=== PATIENT | female | born 1935 | race African-American/Black ===

== ENCOUNTER → 2016-11-18 | Outpatient (CLI) | payer MEDICARE, MEDICAID ==
[~2016-11-18] MED LIST: CLOP75TA2 PO; MECL12.584 PO; OMEP40CA34 PO; SIMV20TA6 PO
== END | disposition home or self-care (01) ==
LOC: MAMMO 09:36
PROVIDERS: ATTEND Radiology Radiation Oncology
DX: Z12.31 Encounter for screening mammogram for malignant neoplasm of breast (principal); C50.412 Malignant neoplasm of upper-outer quadrant of left female breast
CPT/HCPCS: G0202

== ENCOUNTER 2017-01-23 14:47 | Emergency (ER) | payer MEDICARE, MEDICAID ==
[~2017-01-23] VITALS: Ht 167.6 cm; Wt 50.0 kg
[~2017-01-23 14:47] MED LIST changes: +AMLO10TA4 PO; +MECL-109 PO; -MECL12.584 PO
[2017-01-23] MEDS ORDERED: MORPHINE SULFATE 4 MG/ML CPJ (NOT FOR IM USE) IV STA (16:47)
[2017-01-23] MEDS ORDERED: SODIUM CHLORIDE 0.9% 1,000 ML IV ONE (16:47)
[2017-01-23] MEDS ORDERED: ONDANSETRON HCL 4MG/2ML VIAL IV STA (16:47)
[2017-01-23 17:22] LABS: EOSINOPHILS % 1.8 % (0.0-5.0); HEMATOCRIT. 30.9 % (36.0-48.0); HEMOGLOBIN. 9.8 g/dL (12.0-16.0); MEAN CORPUSCULAR HEMOGLOBIN 24.6 pg (28.0-32.0); MEAN CORPUSCULAR VOLUME 77.2 fL (81.0-99.0); MEAN PLATELET VOLUME 7.5 fl (7.4-10.4); MONOCYTES % 8.3 % (2.0-8.0); NEUTROPHILS % 59.9 % (40.0-76.0); PLATELET 329 x1000/uL (130-400); RED CELL DISTRIBUTION WIDTH 16.5 % (11.6-14.6)
[2017-01-23 17:23] LABS: CHLORIDE 102 mEq/L (98-107)
[2017-01-23 17:27] LABS: PROTHROMBIN TIME 10.7 sec
[2017-01-23 17:28] LABS: CARBON DIOXIDE 29 mEq/L (21-32)
[2017-01-23 17:34] LABS: TROPONIN I < 0.02 ng/mL (0.00-0.04)
[2017-01-23] MEDS ORDERED: SORBITOL 70% SOLN 30ML PO ONE (20:15)
[2017-01-23] MEDS ORDERED: NA PHOS,M-B/NA PHOS,DI-BA ENEMA 118ML PR ONE (20:15)
[2017-01-23 22:36] VITALS: BP 134/70
== END 2017-01-23 22:38 | disposition home or self-care (01) ==
LOC: ER 15:06 → CANBEDREQ 22:43
DX: K59.00 Constipation, unspecified (principal); I25.2 Old myocardial infarction; K21.9 Gastro-esophageal reflux disease without esophagitis; I10 Essential (primary) hypertension; K80.20 Calculus of gallbladder without cholecystitis without obstruction; I31.3 Pericardial effusion (noninflammatory); N32.89 Other specified disorders of bladder; I25.10 Atherosclerotic heart disease of native coronary artery without angina pectoris; Z85.3 Personal history of malignant neoplasm of breast; Z87.11 Personal history of peptic ulcer disease; Z98.84 Bariatric surgery status
CPT/HCPCS: 36415; 71010; 74176; 80053; 83605; 83690; 84484; 85025; 85610; 93005; 96361; 96374; 96375; 99285; J2270; J2405; J7030

== ENCOUNTER 2017-02-16 10:40 | Inpatient (IN) | payer MEDICARE, MEDICAID ==
[~2017-02-16] VITALS: Ht 162.6 cm; Wt 46.3 kg
[~2017-02-16 10:40] MED LIST changes: +CLOP75TA16 PO; -CLOP75TA2 PO
[2017-02-16 11:24] LABS: BASOPHILS % 0.9 % (0.0-2.0); EOSINOPHILS % 1.2 % (0.0-5.0); HEMATOCRIT. 31.8 % (36.0-48.0); HEMOGLOBIN. 10.1 g/dL (12.0-16.0); LYMPHOCYTES % 30.7 % (20.0-50.0); MEAN CORPUSCULAR HEMOGLOBIN 24.9 pg (28.0-32.0); MEAN CORPUSCULAR VOLUME 78.7 fL (81.0-99.0); MEAN PLATELET VOLUME 7.6 fl (7.4-10.4); MONOCYTES % 7.4 % (2.0-8.0); NEUTROPHILS % 59.8 % (40.0-76.0); PLATELET 337 x1000/uL (130-400); RED BLOOD CELL COUNT 4.03 mill/uL (4.2-5.4); RED CELL DISTRIBUTION WIDTH 18.6 % (11.6-14.6)
[2017-02-16 11:33] LABS: PARTIAL THROMBOPLASTIN TIME 22.9 sec (23.4-31.0); PROTHROMBIN TIME 10.7 sec (9.4-11.6)
[2017-02-16 11:39] LABS: CARBON DIOXIDE 29 mEq/L (21-32); CHLORIDE 107 mEq/L (98-107)
[2017-02-16 11:41] LABS: TROPONIN I < 0.02 ng/mL (0.00-0.04)
[2017-02-16 11:44] LABS: CLARITY URINE CLOUDY (CLEAR); COLOR URINE DARK YELLOW (YELLOW); GLUCOSE URINE NEGATIVE (NEGATIVE); KETONES URINE TRACE (NEGATIVE); LEUKOCYTE ESTERASE URINE NEGATIVE (NEGATIVE); NITRITE URINE POSITIVE (NEGATIVE); OCCULT BLOOD URINE NEGATIVE (NEGATIVE); PH URINE 5.5 (4.5-8.0); PROTEIN URINE TRACE (NEGATIVE); SPECIFIC GRAVITY URINE 1.038 (1.005-1.030)
[2017-02-16] MEDS ORDERED: POTASSIUM CHLORIDE 20MEQ TABLET SR PO ONE (12:00)
[2017-02-16] MEDS ORDERED: CEFTRIAXONE 1 G PREMIX 50 ML IV ONE (12:00)
[2017-02-16] MEDS ORDERED: SODIUM CHLORIDE 0.9% 500 ML IV ONE (12:10)
[2017-02-16 14:00] VITALS: BP 130/82
[2017-02-16] MEDS ORDERED: DEXT 5%/0.45% NACL 1000ML 1,000 ML IV SCH (16:38)
[2017-02-16] MEDS ORDERED: ACETAMINOPHEN 325MG TABLET PO PRN (16:45)
[2017-02-16] MEDS ORDERED: HYDROCODONE/ACETAMINOPHEN 5/325MG TABLET PO PRN (16:45)
[2017-02-16] MEDS ORDERED: IPRATROPIUM/ALBUTEROL 0.5-3(2.5)MG/3ML NEB INH PRN (16:45)
[2017-02-16] MEDS ORDERED: CLONIDINE 0.1MG TABLET PO PRN (16:45)
[2017-02-16] MEDS ORDERED: ONDANSETRON HCL 4MG/2ML VIAL IV PRN (16:45)
[2017-02-16] MEDS: ENOXAPARIN 40MG/0.4ML SYR SUBCUT SCH (18:53)
[2017-02-16 20:00] VITALS: BP 138/70
[2017-02-16 23:10] LABS: CREATINE KINASE 51 IU/L (26-192); CREATINE KINASE MB FRACTION < 0.5 ng/mL (0.5-3.6); TROPONIN I < 0.02 ng/mL (0.00-0.04)
[2017-02-17] VITALS: BP 125/58
[2017-02-17 04:00] VITALS: BP 130/58
[2017-02-17 06:26] LABS: BASOPHILS % 0.8 % (0.0-2.0); EOSINOPHILS % 1.4 % (0.0-5.0); HEMATOCRIT. 28.9 % (36.0-48.0); HEMOGLOBIN. 9.3 g/dL (12.0-16.0); MEAN CORPUSCULAR HEMOGLOBIN 25.3 pg (28.0-32.0); MEAN CORPUSCULAR VOLUME 78.5 fL (81.0-99.0); MEAN PLATELET VOLUME 7.6 fl (7.4-10.4); MONOCYTES % 8.7 % (2.0-8.0); NEUTROPHILS % 66.1 % (40.0-76.0); PLATELET 301 x1000/uL (130-400); RED BLOOD CELL COUNT 3.68 mill/uL (4.2-5.4); RED CELL DISTRIBUTION WIDTH 18.1 % (11.6-14.6)
[2017-02-17 07:01] LABS: CARBON DIOXIDE 29 mEq/L (21-32); CHLORIDE 105 mEq/L (98-107)
[2017-02-17 07:09] LABS: CREATINE KINASE 50 IU/L (26-192); CREATINE KINASE MB FRACTION < 0.5 ng/mL (0.5-3.6); HDL CHOLESTEROL 65 mg/dL (40-59); LDL CHOLESTEROL 88 mg/dL (5-100); T4 FREE 0.84 ng/dL (0.76-1.46); TROPONIN I < 0.02 ng/mL (0.00-0.04)
[2017-02-17 08:00] VITALS: BP 118/64
[2017-02-17] MEDS ORDERED: POTASSIUM CHLORIDE 20MEQ TABLET SR PO SCH (08:45)
[2017-02-17 12:00] VITALS: BP 116/60
[2017-02-17] MEDS ORDERED: POTASSIUM CHLORIDE 20MEQ TABLET SR PO NR (13:45)
[2017-02-17] MEDS ORDERED: LEVOFLOXACIN 500MG PREMIX 100 ML IV NR (15:30)
[2017-02-17 16:00] VITALS: BP 118/63
[2017-02-17 17:49] VITALS: BP 20/118
[2017-02-17] MEDS: ENOXAPARIN 40MG/0.4ML SYR SUBCUT SCH (18:15)
[2017-02-18] MEDS ORDERED: LEVOFLOXACIN 250MG PREMIX 50 ML IV SCH (16:00)
[2017-04-15] MEDS ORDERED: COR3 PO (19:49)
[2017-04-15] MEDS ORDERED: LOSA50TA3 PO (19:51)
== END 2017-02-17 19:25 | DRG 641 ==
LOC: ER 10:40 → 6EST 11:56 → EDBEDREQSVC 12:01 → EDBEDREQ 12:01 → ENRESERV 12:33
PROVIDERS: ADMIT Internal Medicine; ATTEND Internal Medicine
DX: E86.0 Dehydration (principal); N39.0 Urinary tract infection, site not specified; D64.9 Anemia, unspecified; I10 Essential (primary) hypertension; E87.6 Hypokalemia; I25.10 Atherosclerotic heart disease of native coronary artery without angina pectoris; Z90.3 Acquired absence of stomach [part of]; Z79.899 Other long term (current) drug therapy; Z85.028 Personal history of other malignant neoplasm of stomach
CPT/HCPCS: 36415; 51702; 70450; 71010; 74176; 80053; 80061; 81001; 82550; 82553; 83605; 83690; 83735; 83880; 84439; 84443; 84484; 85025; 85610; 85730; 87040; 87077; 87086; 87186; 93005; 96360; 97163; 99285; J0696; J1650; J1956; J2405; J3490; J7040; A4315

== ENCOUNTER 2017-04-12 07:06 | Emergency (ER) | payer MEDICARE, MEDICAID ==
[~2017-04-12] VITALS: Ht 165.1 cm; Wt 52.0 kg
[2017-04-12 08:50] VITALS: BP 128/78
[2017-04-15] MEDS ORDERED: COR3 PO (19:49)
[2017-04-15] MEDS ORDERED: LOSA50TA3 PO (19:51)
== END 2017-04-12 09:05 | disposition home or self-care (01) ==
LOC: ER 07:06
DX: H66.91 Otitis media, unspecified, right ear (principal); I10 Essential (primary) hypertension
CPT/HCPCS: 99283

== ENCOUNTER 2017-08-05 12:21 | Emergency (ER) | payer OTHER, MEDICAID ==
[~2017-08-05] VITALS: Ht 165.1 cm; Wt 59.0 kg
[~2017-08-05 12:21] MED LIST changes: +AMIT25TA9 PO; +ASPI-986 PO; +COR3 PO; +DEXILANT PO; +LOSA50TA3 PO
[2017-08-05] MEDS ORDERED: SODIUM CHLORIDE 0.9% 1,000 ML IV ONE (12:43)
[2017-08-05] MEDS ORDERED: ONDANSETRON HCL 4MG/2ML VIAL IV STA (12:43)
[2017-08-05 13:08] LABS: HEMATOCRIT. 28.5 % (36.0-48.0); HEMOGLOBIN. 9.4 g/dL (12.0-16.0); MEAN CORPUSCULAR HEMOGLOBIN 26.5 pg (28.0-32.0); PLATELET 309 x1000/uL (130-400); RED BLOOD CELL COUNT 3.56 mill/uL (4.2-5.4); RED CELL DISTRIBUTION WIDTH 14.8 % (11.6-14.6)
[2017-08-05 13:16] LABS: PROTHROMBIN TIME 10.8 sec (9.4-11.6)
[2017-08-05 13:23] LABS: CHLORIDE 104 mEq/L (98-107)
[2017-08-05 13:29] LABS: PLATELET ESTIMATE NORMAL
[2017-08-05 13:35] LABS: CLARITY URINE CLEAR (CLEAR); COLOR URINE YELLOW (YELLOW); KETONES URINE TRACE (NEGATIVE); LEUKOCYTE ESTERASE URINE NEGATIVE (NEGATIVE); NITRITE URINE NEGATIVE (NEGATIVE); OCCULT BLOOD URINE NEGATIVE (NEGATIVE); PH URINE 6.5 (4.5-8.0); PROTEIN URINE NEGATIVE (NEGATIVE); SPECIFIC GRAVITY URINE 1.014 (1.005-1.030)
[2017-08-05] MEDS ORDERED: POTASSIUM CHLORIDE 20MEQ TABLET SR PO ONE (15:45)
[2017-08-05 17:02] VITALS: BP 147/78
== END 2017-08-05 17:15 | disposition home or self-care (01) ==
LOC: ER 12:24
DX: E87.6 Hypokalemia (principal); E78.00 Pure hypercholesterolemia, unspecified; I25.2 Old myocardial infarction; I10 Essential (primary) hypertension; R10.84 Generalized abdominal pain; Z86.73 Personal history of transient ischemic attack (TIA), and cerebral infarction without residual deficits; Z79.82 Long term (current) use of aspirin
CPT/HCPCS: 36415; 70450; 71045; 74176; 80053; 81003; 85025; 85610; 93005; 96361; 96374; 99285; J2405; J7030

== ENCOUNTER 2017-08-14 10:01 | Inpatient (IN) | payer OTHER, MEDICAID ==
[~2017-08-14] VITALS: Ht 162.6 cm; Wt 47.2 kg
[2017-08-14 11:26] LABS: BASOPHILS % 1.5 % (0.0-2.0); EOSINOPHILS % 1.4 % (0.0-5.0); HEMATOCRIT. 29.4 % (36.0-48.0); HEMOGLOBIN. 9.4 g/dL (12.0-16.0); LYMPHOCYTES % 29.1 % (20.0-50.0); MEAN CORPUSCULAR HEMOGLOBIN 25.6 pg (28.0-32.0); MEAN CORPUSCULAR VOLUME 79.7 fL (81.0-99.0); MEAN PLATELET VOLUME 6.7 fl (7.4-10.4); MONOCYTES % 8.3 % (2.0-8.0); NEUTROPHILS % 59.7 % (40.0-76.0); PLATELET 350 x1000/uL (130-400); RED BLOOD CELL COUNT 3.69 mill/uL (4.2-5.4); RED CELL DISTRIBUTION WIDTH 15.3 % (11.6-14.6)
[2017-08-14 11:33] LABS: PROTHROMBIN TIME 10.8 sec (9.4-11.6)
[2017-08-14 11:39] LABS: CHLORIDE 106 mEq/L (98-107)
[2017-08-14 11:45] LABS: TROPONIN I < 0.02 ng/mL (0.00-0.04)
[2017-08-14] MEDS ORDERED: ASPIRIN 325MG EC TABLET PO ONE (11:45)
[2017-08-14] MEDS ORDERED: MECLIZINE 25MG TABLET PO PRN (14:15)
[2017-08-14] MEDS ORDERED: ACETAMINOPHEN 325MG TABLET PO PRN (14:15)
[2017-08-14] MEDS ORDERED: ONDANSETRON HCL 4MG/2ML VIAL IV PRN (14:15)
[2017-08-14] MEDS ORDERED: IPRATROPIUM/ALBUTEROL 0.5-3(2.5)MG/3ML NEB INH PRN (14:15)
[2017-08-14] MEDS ORDERED: POTASSIUM CHLORIDE 20MEQ TABLET SR PO NR (14:15)
[2017-08-14] MEDS: ENOXAPARIN 40MG/0.4ML SYR SUBCUT SCH (18:19)
[2017-08-14] MEDS: ASPIRIN 325MG TABLET PO SCH (18:20)
[2017-08-14] MEDS: AMLODIPINE 10MG TABLET PO SCH (18:20)
[2017-08-14] MEDS: CLOPIDOGREL 75MG TABLET PO SCH (18:20)
[2017-08-14] MEDS: CARVEDILOL 3.125 MG TABLET PO SCH ×2 (18:21→21:31)
[2017-08-14] MEDS: LOSARTAN POTASSIUM 50 MG TABLET PO SCH ×2 (18:21→21:32)
[2017-08-14 18:48] VITALS: BP 131/79
[2017-08-14 20:02] LABS: CHLORIDE 103 mEq/L (98-107)
[2017-08-14] MEDS: AMITRIPTYLINE 25MG TABLET PO SCH ×2 (21:31→22:00)
[2017-08-14 23:09] LABS: CLARITY URINE CLOUDY (CLEAR); COLOR URINE YELLOW (YELLOW); KETONES URINE NEGATIVE (NEGATIVE); LEUKOCYTE ESTERASE URINE TRACE (NEGATIVE); NITRITE URINE NEGATIVE (NEGATIVE); OCCULT BLOOD URINE NEGATIVE (NEGATIVE); PH URINE 6.5 (4.5-8.0); PROTEIN URINE NEGATIVE (NEGATIVE); SPECIFIC GRAVITY URINE 1.011 (1.005-1.030)
[2017-08-15 01:09] LABS: CREATINE KINASE 54 IU/L (26-192)
[2017-08-15 01:15] LABS: TROPONIN I < 0.02 ng/mL (0.00-0.04)
[2017-08-15] MEDS: HYDROCODONE/ACETAMINOPHEN 5/325MG TABLET PO PRN ×2 (05:44→14:54)
[2017-08-15 07:26] VITALS: BP 110/63
[2017-08-15 08:05] LABS: BASOPHILS % 1.4 % (0.0-2.0); EOSINOPHILS % 1.8 % (0.0-5.0); HEMATOCRIT. 30.6 % (36.0-48.0); HEMOGLOBIN. 9.8 g/dL (12.0-16.0); LYMPHOCYTES % 28.4 % (20.0-50.0); MEAN CORPUSCULAR HEMOGLOBIN 25.7 pg (28.0-32.0); MEAN CORPUSCULAR VOLUME 80.3 fL (81.0-99.0); MEAN PLATELET VOLUME 7.4 fl (7.4-10.4); MONOCYTES % 8.7 % (2.0-8.0); NEUTROPHILS % 59.7 % (40.0-76.0); PLATELET 348 x1000/uL (130-400); RED BLOOD CELL COUNT 3.81 mill/uL (4.2-5.4); RED CELL DISTRIBUTION WIDTH 15.5 % (11.6-14.6)
[2017-08-15 08:27] LABS: CHLORIDE 107 mEq/L (98-107)
[2017-08-15 08:38] LABS: CREATINE KINASE 40 IU/L (26-192); HDL CHOLESTEROL 62 mg/dL (40-59); LDL CHOLESTEROL 93 mg/dL (5-100); T4 FREE 0.82 ng/dL (0.76-1.46); TROPONIN I < 0.02 ng/mL (0.00-0.04)
[2017-08-15] MEDS: AMLODIPINE 10MG TABLET PO SCH (08:41)
[2017-08-15] MEDS: LOSARTAN POTASSIUM 50 MG TABLET PO SCH (08:41)
[2017-08-15] MEDS: CARVEDILOL 3.125 MG TABLET PO SCH (08:41)
[2017-08-15] MEDS: CLOPIDOGREL 75MG TABLET PO SCH (08:44)
[2017-08-15] MEDS: ASPIRIN 325MG TABLET PO SCH (08:44)
[2017-08-15 11:27] VITALS: BP 135/79
[2017-08-15 16:00] VITALS: BP 122/66
[2017-08-15] MEDS: ENOXAPARIN 40MG/0.4ML SYR SUBCUT SCH (17:00)
[2017-08-15 17:11] VITALS: BP 122/66
[2017-08-15] MEDS ORDERED: AMITRIPTYLINE 25MG TABLET PO SCH (21:00)
[2017-08-16] MEDS ORDERED: LOSARTAN POTASSIUM 25 MG TABLET PO SCH (09:00)
[2017-08-16] MEDS ORDERED: AMLODIPINE 2.5MG TABLET PO SCH (09:00)
== END 2017-08-15 18:15 | disposition home or self-care (01) | DRG 206 ==
LOC: ER 10:01 → 6WST 12:02 → EDBEDREQ 12:04 → ENRESERV 14:40
PROVIDERS: ADMIT Internal Medicine; ATTEND Internal Medicine
DX: M94.0 Chondrocostal junction syndrome [Tietze] (principal); I95.9 Hypotension, unspecified; I42.9 Cardiomyopathy, unspecified; I11.0 Hypertensive heart disease with heart failure; I50.22 Chronic systolic (congestive) heart failure; R13.10 Dysphagia, unspecified; I25.10 Atherosclerotic heart disease of native coronary artery without angina pectoris; D64.9 Anemia, unspecified; J44.9 Chronic obstructive pulmonary disease, unspecified; E78.00 Pure hypercholesterolemia, unspecified; E78.5 Hyperlipidemia, unspecified; E87.6 Hypokalemia; G43.909 Migraine, unspecified, not intractable, without status migrainosus; I25.2 Old myocardial infarction; Z79.899 Other long term (current) drug therapy; Z85.028 Personal history of other malignant neoplasm of stomach; Z86.73 Personal history of transient ischemic attack (TIA), and cerebral infarction without residual deficits; Z90.3 Acquired absence of stomach [part of]; Z95.5 Presence of coronary angioplasty implant and graft; Z87.891 Personal history of nicotine dependence; Z79.82 Long term (current) use of aspirin; Z90.49 Acquired absence of other specified parts of digestive tract
CPT/HCPCS: 36415; 71045; 80048; 80053; 80061; 81003; 82550; 83880; 84439; 84443; 84484; 85025; 85610; 93005; 93306; 99285; J1650

== ENCOUNTER 2017-08-24 09:44 | Inpatient (IN) | payer OTHER, MEDICAID ==
[~2017-08-24] VITALS: Ht 162.6 cm; Wt 47.6 kg
[2017-08-24] MEDS ORDERED: ONDANSETRON HCL 4MG/2ML VIAL IV STA (09:55)
[2017-08-24] MEDS ORDERED: SODIUM CHLORIDE 0.9% 500 ML IV ONE (09:55)
[2017-08-24 10:12] LABS: BASOPHILS % 1.4 % (0.0-2.0); EOSINOPHILS % 1.8 % (0.0-5.0); HEMATOCRIT. 26.5 % (36.0-48.0); HEMOGLOBIN. 8.8 g/dL (12.0-16.0); LYMPHOCYTES % 30.5 % (20.0-50.0); MEAN CORPUSCULAR HEMOGLOBIN 26.6 pg (28.0-32.0); MEAN CORPUSCULAR VOLUME 80.2 fL (81.0-99.0); MEAN PLATELET VOLUME 7.2 fl (7.4-10.4); MONOCYTES % 7.9 % (2.0-8.0); NEUTROPHILS % 58.4 % (40.0-76.0); PLATELET 305 x1000/uL (130-400); RED BLOOD CELL COUNT 3.31 mill/uL (4.2-5.4); RED CELL DISTRIBUTION WIDTH 15.7 % (11.6-14.6)
[2017-08-24 10:19] LABS: PARTIAL THROMBOPLASTIN TIME 23.2 sec (23.4-31.0); PROTHROMBIN TIME 10.5 sec (9.4-11.6)
[2017-08-24 10:20] LABS: CHLORIDE 107 mEq/L (98-107)
[2017-08-24 10:27] LABS: CREATINE KINASE 60 IU/L (26-192); CREATINE KINASE MB FRACTION 0.8 ng/mL (0.5-3.6); TROPONIN I < 0.02 ng/mL (0.00-0.04)
[2017-08-24] MEDS ORDERED: SODIUM CHLORIDE 0.9% 250 ML IV ONE (10:54)
[2017-08-24] MEDS ORDERED: POTASSIUM CHLORIDE 20MEQ TABLET SR PO ONE (14:45)
[2017-08-24] MEDS ORDERED: ACETAMINOPHEN 325MG TABLET PO PRN (14:45)
[2017-08-24] MEDS ORDERED: CLONIDINE 0.1MG TABLET PO PRN (14:45)
[2017-08-24] MEDS ORDERED: ONDANSETRON HCL 4MG/2ML VIAL IV PRN (14:45)
[2017-08-24] MEDS ORDERED: IPRATROPIUM/ALBUTEROL 0.5-3(2.5)MG/3ML NEB INH PRN (14:45)
[2017-08-24 15:56] LABS: CLARITY URINE CLOUDY (CLEAR); COLOR URINE YELLOW (YELLOW); KETONES URINE NEGATIVE (NEGATIVE); LEUKOCYTE ESTERASE URINE 1+ (NEGATIVE); NITRITE URINE POSITIVE (NEGATIVE); OCCULT BLOOD URINE NEGATIVE (NEGATIVE); PH URINE 6.5 (4.5-8.0); PROTEIN URINE NEGATIVE (NEGATIVE); SPECIFIC GRAVITY URINE 1.012 (1.005-1.030)
[2017-08-24] MEDS: HYDROCODONE/ACETAMINOPHEN 5/325MG TABLET PO PRN (20:39)
[2017-08-25] VITALS (7 sets, daily range): BP systolic 108–140; BP diastolic 58–79
[2017-08-25] MEDS: HYDROCODONE/ACETAMINOPHEN 5/325MG TABLET PO PRN ×2 (01:19→12:29)
[2017-08-25 03:18] LABS: CREATINE KINASE 56 IU/L (26-192); TROPONIN I < 0.02 ng/mL (0.00-0.04)
[2017-08-25] MEDS ORDERED: ENOXAPARIN 40MG/0.4ML SYR SUBCUT SCH (09:00)
[2017-08-25 09:56] LABS: BASOPHILS % 1.1 % (0.0-2.0); EOSINOPHILS % 1.2 % (0.0-5.0); LYMPHOCYTES % 25.8 % (20.0-50.0); MEAN CORPUSCULAR VOLUME 80.9 fL (81.0-99.0); MEAN PLATELET VOLUME 7.9 fl (7.4-10.4); MONOCYTES % 4.2 % (2.0-8.0); NEUTROPHILS % 67.7 % (40.0-76.0); PLATELET 357 x1000/uL (130-400); RED BLOOD CELL COUNT 4.27 mill/uL (4.2-5.4); RED CELL DISTRIBUTION WIDTH 15.9 % (11.6-14.6)
[2017-08-25 10:00] LABS: HEMATOCRIT. 34.5 % (36.0-48.0); HEMOGLOBIN. 11.1 g/dL (12.0-16.0)
[2017-08-25 12:35] LABS: CHLORIDE 103 mEq/L (98-107)
[2017-08-25 12:52] LABS: CREATINE KINASE 66 IU/L (26-192); HDL CHOLESTEROL 66 mg/dL (40-59); LDL CHOLESTEROL 107 mg/dL (5-100); T4 FREE 0.91 ng/dL (0.76-1.46); TROPONIN I < 0.02 ng/mL (0.00-0.04)
== END 2017-08-25 16:50 | disposition home or self-care (01) | DRG 191 ==
LOC: ER 09:44 → 6WST 11:00 → ENRESERV 22:09
PROVIDERS: ADMIT Internal Medicine; ATTEND Internal Medicine
DX: J44.1 Chronic obstructive pulmonary disease with (acute) exacerbation (principal); I42.9 Cardiomyopathy, unspecified; I11.0 Hypertensive heart disease with heart failure; I50.22 Chronic systolic (congestive) heart failure; I25.118 Atherosclerotic heart disease of native coronary artery with other forms of angina pectoris; R07.89 Other chest pain; D63.8 Anemia in other chronic diseases classified elsewhere; D72.819 Decreased white blood cell count, unspecified; E03.9 Hypothyroidism, unspecified; E78.5 Hyperlipidemia, unspecified; R73.9 Hyperglycemia, unspecified; R00.1 Bradycardia, unspecified; Z79.82 Long term (current) use of aspirin; Z79.899 Other long term (current) drug therapy; Z85.028 Personal history of other malignant neoplasm of stomach; Z90.3 Acquired absence of stomach [part of]; Z90.49 Acquired absence of other specified parts of digestive tract
CPT/HCPCS: 36415; 70450; 71045; 80053; 80061; 81003; 82550; 82553; 83690; 83735; 84439; 84481; 84484; 85025; 85610; 85730; 93005; 96361; 96374; 99285; J1650; J2405; J7040; J7050

== ENCOUNTER 2017-08-28 09:29 | Emergency (ER) | payer OTHER, MEDICAID ==
[~2017-08-28] VITALS: Ht 165.1 cm; Wt 75.0 kg
[2017-08-28 13:30] VITALS: BP 157/82
== END 2017-08-28 13:46 | disposition home or self-care (01) ==
LOC: ER 09:42
DX: R68.84 Jaw pain (principal); I69.354 Hemiplegia and hemiparesis following cerebral infarction affecting left non-dominant side; Z79.82 Long term (current) use of aspirin
CPT/HCPCS: 99283

== ENCOUNTER → 2017-12-13 | Outpatient (CLI) | payer OTHER, MEDICAID, MEDICARE | END | disposition home or self-care (01) | LOC: MAMMO 07:56 | PROVIDERS: ATTEND Radiology Radiation Oncology | DX: Z12.31 Encounter for screening mammogram for malignant neoplasm of breast (principal) | CPT/HCPCS: 77067 ==

== ENCOUNTER 2018-01-04 07:40 | Observation (INO) | payer OTHER, MEDICAID ==
[~2018-01-04] VITALS: Ht 162.6 cm; Wt 49.0 kg
[2018-01-04] MEDS ORDERED: SODIUM CHLORIDE 0.9% 250 ML IV ONE (08:23)
[2018-01-04 08:29] LABS: BASOPHILS % 1.2 % (0.0-2.0); EOSINOPHILS % 1.3 % (0.0-5.0); HEMATOCRIT. 30.2 % (36.0-48.0); HEMOGLOBIN. 9.6 g/dL (12.0-16.0); MEAN CORPUSCULAR HEMOGLOBIN 23.7 pg (28.0-32.0); MEAN PLATELET VOLUME 7.2 fl (7.4-10.4); MONOCYTES % 8.8 % (2.0-8.0); NEUTROPHILS % 59.7 % (40.0-76.0); PLATELET 428 x1000/uL (130-400); RED BLOOD CELL COUNT 4.03 mill/uL (4.2-5.4)
[2018-01-04] MEDS ORDERED: ONDANSETRON 4MG ODT PO ONE ×2 (08:30→12:45)
[2018-01-04 08:35] LABS: CHLORIDE 106 mEq/L (98-107)
[2018-01-04 08:37] LABS: PARTIAL THROMBOPLASTIN TIME 22.1 sec (23.4-31.0)
[2018-01-04 08:54] LABS: CLARITY URINE CLOUDY (CLEAR); COLOR URINE YELLOW (YELLOW); KETONES URINE NEGATIVE (NEGATIVE); LEUKOCYTE ESTERASE URINE TRACE (NEGATIVE); NITRITE URINE NEGATIVE (NEGATIVE); OCCULT BLOOD URINE NEGATIVE (NEGATIVE); PROTEIN URINE NEGATIVE (NEGATIVE); SPECIFIC GRAVITY URINE 1.014 (1.005-1.030)
[2018-01-04] MEDS ORDERED: CEFTRIAXONE 1 G PREMIX 50 ML IV ONE (10:30)
[2018-01-04] MEDS ORDERED: ACETAMINOPHEN 325MG TABLET PO PRN (13:45)
[2018-01-04] MEDS ORDERED: HYDROCODONE/ACETAMINOPHEN 5/325MG TABLET PO PRN (13:45)
[2018-01-04] MEDS ORDERED: IPRATROPIUM/ALBUTEROL 0.5-3(2.5)MG/3ML NEB INH PRN (13:45)
[2018-01-04] MEDS ORDERED: MAGNESIUM/ALUMINUM HYDROXIDE/SIMETHICONE 30ML UDC PO PRN (13:45)
[2018-01-04] MEDS ORDERED: DIPHENHYDRAMINE 50MG/ML VIAL IV PRN (13:45)
[2018-01-04] MEDS ORDERED: ACETAMINOPHEN 650MG SUPP PR PRN (13:45)
[2018-01-04] MEDS ORDERED: ONDANSETRON HCL 4MG/2ML VIAL IV PRN (13:45)
[2018-01-04 14:30] VITALS: BP 146/63
[2018-01-04 14:41] VITALS: BP 146/63
[2018-01-04] MEDS ORDERED: BISACODYL 5MG TABLET PO PRN (15:15)
[2018-01-04] MEDS ORDERED: MECLIZINE 25MG TABLET PO PRN (15:15)
[2018-01-04] MEDS ORDERED: HYDRALAZINE 20MG/ML VIAL IV PRN (15:15)
[2018-01-04] MEDS ORDERED: LEVOFLOXACIN 500MG PREMIX 100 ML IV NR (16:00)
[2018-01-04] MEDS ORDERED: ENOXAPARIN 40MG/0.4ML SYR SUBCUT SCH (16:00)
[2018-01-04] MEDS ORDERED: MEDICATION NOT ON FORMULARY EA (Simvastatin 20 MG) PO SCH (17:00)
[2018-01-04] MEDS: PANTOPRAZOLE SODIUM 40 MG/VIAL IV SCH (17:14)
[2018-01-04] MEDS: SODIUM CHLORIDE 0.45% 1,000 ML IV SCH (17:14)
[2018-01-04 18:08] LABS: CREATINE KINASE 74 IU/L (26-192)
[2018-01-04 18:09] LABS: CREATINE KINASE MB FRACTION 0.6 ng/mL (0.5-3.6)
[2018-01-04 20:00] VITALS: BP 124/75
[2018-01-04] MEDS ORDERED: ATORVASTATIN CALCIUM 20MG TABLET PO SCH (21:00)
[2018-01-05] VITALS: BP 148/70
[2018-01-05 01:35] LABS: CREATINE KINASE 75 IU/L (26-192)
[2018-01-05 01:37] LABS: CREATINE KINASE MB FRACTION 0.8 ng/mL (0.5-3.6)
[2018-01-05] MEDS: SODIUM CHLORIDE 0.45% 1,000 ML IV SCH (04:24)
[2018-01-05 07:17] LABS: EOSINOPHILS % 1.2 % (0.0-5.0); HEMOGLOBIN. 8.5 g/dL (12.0-16.0); MEAN CORPUSCULAR HEMOGLOBIN 23.6 pg (28.0-32.0); MEAN CORPUSCULAR VOLUME 74.6 fL (81.0-99.0); MEAN PLATELET VOLUME 7.4 fl (7.4-10.4); MONOCYTES % 8.1 % (2.0-8.0); NEUTROPHILS % 67.7 % (40.0-76.0); PLATELET 404 x1000/uL (130-400); RED BLOOD CELL COUNT 3.62 mill/uL (4.2-5.4); RED CELL DISTRIBUTION WIDTH 18.1 % (11.6-14.6)
[2018-01-05 08:00] VITALS: BP 140/59
[2018-01-05 08:07] LABS: *BARBITURATES SCREEN URINE NEGATIVE (NEGATIVE); *BENZODIAZEPINES SCREEN URINE NEGATIVE (NEGATIVE); *COCAINE SCREEN URINE NEGATIVE (NEGATIVE)
[2018-01-05 08:08] LABS: CANNABINOID URINE SCREEN NEGATIVE (NEGATIVE); METHADONE URINE SCREEN NEGATIVE (NEGATIVE); OPIATES URINE SCREEN NEGATIVE (NEGATIVE); PHENCYCLIDINE URINE SCREEN NEGATIVE (NEGATIVE)
[2018-01-05 08:09] LABS: *AMPHETAMINES SCREEN URINE NEGATIVE (NEGATIVE)
[2018-01-05] MEDS: PANTOPRAZOLE SODIUM 40 MG/VIAL IV SCH (08:47)
[2018-01-05 08:55] LABS: CHLORIDE 108 mEq/L (98-107)
[2018-01-05] MEDS ORDERED: ASPIRIN 81MG TABLET PO SCH (09:00)
[2018-01-05] MEDS ORDERED: CLOPIDOGREL 75MG TABLET PO SCH (09:00)
[2018-01-05 10:01] LABS: LDL CHOLESTEROL 105 mg/dL (5-100)
[2018-01-05 10:02] LABS: HDL CHOLESTEROL 52 mg/dL (40-59)
[2018-01-05 10:05] LABS: T4 FREE 0.81 ng/dL (0.76-1.46)
[2018-01-05 12:00] VITALS: BP 131/69
[2018-01-05 15:44] VITALS: BP 131/69
[2018-01-05] MEDS ORDERED: LEVOFLOXACIN 500MG PREMIX 100 ML IV SCH (16:00)
[2018-01-05 16:32] VITALS: BP 142/70
== END 2018-01-05 18:00 | disposition home or self-care (01) ==
LOC: ER 08:21 → 5WST 09:07 → INTOOBSV 09:07 → EDBEDREQ 09:10 → ENRESERV 12:27 → SUPCPDRO 13:40
PROVIDERS: ADMIT Internal Medicine; ATTEND Internal Medicine
DX: R11.2 Nausea with vomiting, unspecified (principal); R42 Dizziness and giddiness; K59.00 Constipation, unspecified; E78.5 Hyperlipidemia, unspecified; I25.2 Old myocardial infarction; D72.819 Decreased white blood cell count, unspecified; D68.59 Other primary thrombophilia; D64.9 Anemia, unspecified; C16.9 Malignant neoplasm of stomach, unspecified; R94.31 Abnormal electrocardiogram [ECG] [EKG]; R00.1 Bradycardia, unspecified; E11.9 Type 2 diabetes mellitus without complications; I10 Essential (primary) hypertension; Z85.3 Personal history of malignant neoplasm of breast; Z87.891 Personal history of nicotine dependence; Z79.899 Other long term (current) drug therapy
CPT/HCPCS: 36415; 70450; 71045; 74176; 80053; 80061; 80305; 81003; 82550; 82553; 83036; 83690; 83735; 84132; 84439; 84443; 84484; 85025; 85610; 85730; 87077; 87086; 87186; 93005; 93970; 96361; 96365; 96367; 96372; 96375; 96376; 97162; 99285; C9113; G0378; J0696; J1650; J1956; J2405; J7040; Q0162; 96366; J7050; J8597

== ENCOUNTER 2018-01-17 13:28 | Inpatient (IN) | payer OTHER, MEDICAID ==
[~2018-01-17] VITALS: Ht 162.6 cm; Wt 47.6 kg
[~2018-01-17 13:28] MED LIST changes: -AMIT25TA9 PO; -COR3 PO; -DEXILANT PO
[2018-01-17 14:37] LABS: EOSINOPHILS % 1.3 % (0.0-5.0); HEMATOCRIT. 27.7 % (36.0-48.0); LYMPHOCYTES % 30.4 % (20.0-50.0); MEAN CORPUSCULAR VOLUME 74.1 fL (81.0-99.0); MEAN PLATELET VOLUME 7.5 fl (7.4-10.4); MONOCYTES % 8.9 % (2.0-8.0); NEUTROPHILS % 57.4 % (40.0-76.0); PLATELET 357 x1000/uL (130-400); RED BLOOD CELL COUNT 3.74 mill/uL (4.2-5.4); RED CELL DISTRIBUTION WIDTH 18.5 % (11.6-14.6)
[2018-01-17 14:44] LABS: INR 1.1; PROTHROMBIN TIME 11.2 sec (9.4-11.6)
[2018-01-17 14:45] LABS: CHLORIDE 105 mEq/L (98-107)
[2018-01-17] MEDS ORDERED: NITROGLYCERIN 0.4MG TABLET SL SL ONE (15:30)
[2018-01-17] MEDS ORDERED: MAGNESIUM/ALUMINUM HYDROXIDE/SIMETHICONE 30ML UDC PO PRN (16:45)
[2018-01-17] MEDS ORDERED: NA PHOS,M-B/NA PHOS,DI-BA ENEMA 118ML PR PRN (16:45)
[2018-01-17] MEDS ORDERED: ONDANSETRON HCL 4MG/2ML VIAL IV PRN (16:45)
[2018-01-17] MEDS ORDERED: ACETAMINOPHEN 650MG SUPP PR PRN (16:45)
[2018-01-17] MEDS ORDERED: HYDROCODONE/ACETAMINOPHEN 5/325MG TABLET PO PRN (16:45)
[2018-01-17] MEDS ORDERED: IPRATROPIUM/ALBUTEROL 0.5-3(2.5)MG/3ML NEB INH PRN (16:45)
[2018-01-17] MEDS ORDERED: MEDICATION NOT ON FORMULARY EA (Meclizine Hcl 25 MG) PO PRN (16:45)
[2018-01-17] MEDS ORDERED: DIPHENHYDRAMINE 50MG/ML VIAL IV PRN (16:45)
[2018-01-17] MEDS ORDERED: ACETAMINOPHEN 325MG TABLET PO PRN (16:45)
[2018-01-17] MEDS ORDERED: MEDICATION NOT ON FORMULARY EA (Simvastatin 20 MG) PO SCH (17:00)
[2018-01-17 17:45] VITALS: BP 132/68
[2018-01-17] MEDS ORDERED: HYDRALAZINE 20MG/ML VIAL IV PRN (17:45)
[2018-01-17 17:59] VITALS: BP 125/65
[2018-01-17] MEDS ORDERED: MECLIZINE 25MG TABLET PO PRN (18:15)
[2018-01-17] MEDS: AMLODIPINE 10MG TABLET PO SCH (18:50)
[2018-01-17 20:00] VITALS: BP 141/62
[2018-01-17] MEDS ORDERED: ATORVASTATIN CALCIUM 10MG TABLET PO SCH (21:00)
[2018-01-18] VITALS: BP 127/57
[2018-01-18] MEDS ORDERED: DEXT 5%/0.45% NACL 1000ML 1,000 ML IV SCH
[2018-01-18 00:41] LABS: CREATINE KINASE 53 IU/L (26-192)
[2018-01-18 00:42] LABS: CREATINE KINASE MB FRACTION 0.6 ng/mL (0.5-3.6)
[2018-01-18 04:00] VITALS: BP 141/60
[2018-01-18 07:43] LABS: BASOPHILS % 1.6 % (0.0-2.0); EOSINOPHILS % 2.8 % (0.0-5.0); HEMATOCRIT. 27.7 % (36.0-48.0); HEMOGLOBIN. 8.9 g/dL (12.0-16.0); LYMPHOCYTES % 23.1 % (20.0-50.0); MEAN CORPUSCULAR HEMOGLOBIN 23.7 pg (28.0-32.0); MEAN CORPUSCULAR VOLUME 74.3 fL (81.0-99.0); MONOCYTES % 7.9 % (2.0-8.0); NEUTROPHILS % 64.6 % (40.0-76.0); RED BLOOD CELL COUNT 3.73 mill/uL (4.2-5.4); RED CELL DISTRIBUTION WIDTH 18.2 % (11.6-14.6)
[2018-01-18 07:51] LABS: CHLORIDE 105 mEq/L (98-107)
[2018-01-18 08:00] VITALS: BP 140/59
[2018-01-18 08:03] LABS: CREATINE KINASE 54 IU/L (26-192)
[2018-01-18 08:09] LABS: CREATINE KINASE MB FRACTION 0.7 ng/mL (0.5-3.6)
[2018-01-18 08:42] LABS: MEAN PLATELET VOLUME 7.3 fl (7.4-10.4); PLATELET 316 x1000/uL (130-400)
[2018-01-18] MEDS ORDERED: CLOPIDOGREL 75MG TABLET PO SCH (09:00)
[2018-01-18] MEDS: AMLODIPINE 10MG TABLET PO SCH ×2 (09:00→11:33)
[2018-01-18] MEDS ORDERED: ASPIRIN 325MG TABLET PO SCH (09:00)
[2018-01-18] MEDS ORDERED: MEDICATION NOT ON FORMULARY EA (Aspirin 1 TAB) PO SCH (09:00)
[2018-01-18] MEDS ORDERED: MEDICATION NOT ON FORMULARY EA (Clopidogrel Bisulfate (Plavix) 75 MG) PO SCH (09:00)
[2018-01-18] MEDS ORDERED: MEDICATION NOT ON FORMULARY EA (Omeprazole 40 MG) PO SCH (09:00)
[2018-01-18] MEDS ORDERED: FAMOTIDINE 20MG TABLET PO SCH (09:00)
[2018-01-18] MEDS ORDERED: LOSARTAN POTASSIUM 50 MG TABLET PO SCH (09:00)
[2018-01-18 10:47] LABS: CLARITY URINE CLEAR (CLEAR); COLOR URINE YELLOW (YELLOW); SPECIFIC GRAVITY URINE 1.024 (1.005-1.030)
[2018-01-18 10:48] LABS: KETONES URINE NEGATIVE (NEGATIVE); LEUKOCYTE ESTERASE URINE NEGATIVE (NEGATIVE); NITRITE URINE NEGATIVE (NEGATIVE); OCCULT BLOOD URINE NEGATIVE (NEGATIVE); PROTEIN URINE NEGATIVE (NEGATIVE)
[2018-01-18 11:06] LABS: *AMPHETAMINES SCREEN URINE NEGATIVE (NEGATIVE); *BARBITURATES SCREEN URINE NEGATIVE (NEGATIVE); *BENZODIAZEPINES SCREEN URINE NEGATIVE (NEGATIVE); *COCAINE SCREEN URINE NEGATIVE (NEGATIVE); METHADONE URINE SCREEN NEGATIVE (NEGATIVE); OPIATES URINE SCREEN PRESUMTIVE POSITIVE (NEGATIVE)
[2018-01-18 11:07] LABS: CANNABINOID URINE SCREEN NEGATIVE (NEGATIVE); PHENCYCLIDINE URINE SCREEN NEGATIVE (NEGATIVE)
[2018-01-18 12:00] VITALS: BP 130/57
[2018-01-18] MEDS ORDERED: POTASSIUM CHLORIDE 20MEQ TABLET SR PO NR (15:00)
[2018-01-18 15:28] VITALS: BP 147/62
[2018-01-18] MEDS ORDERED: LACTULOSE 20G/30ML UDC PO NR (15:45)
[2018-01-18 15:46] VITALS: BP 147/62
== END 2018-01-18 17:30 | disposition home or self-care (01) | DRG 392 ==
LOC: ER 13:44 → 8WST 14:00 → INTOOBSV 14:00 → OBSVTOIN 14:00 → EDBEDREQ 15:55 → ENRESERV 15:58
PROVIDERS: ADMIT Internal Medicine; ATTEND Internal Medicine
DX: K21.9 Gastro-esophageal reflux disease without esophagitis (principal); I24.9 Acute ischemic heart disease, unspecified; E11.9 Type 2 diabetes mellitus without complications; E78.5 Hyperlipidemia, unspecified; F03.90 Unspecified dementia, unspecified severity, without behavioral disturbance, psychotic disturbance, mood disturbance, and anxiety; I10 Essential (primary) hypertension; J44.9 Chronic obstructive pulmonary disease, unspecified; M16.0 Bilateral primary osteoarthritis of hip; D64.9 Anemia, unspecified; R00.1 Bradycardia, unspecified; I25.2 Old myocardial infarction; Z85.028 Personal history of other malignant neoplasm of stomach; Z85.3 Personal history of malignant neoplasm of breast; Z92.3 Personal history of irradiation; Z79.899 Other long term (current) drug therapy; Z79.82 Long term (current) use of aspirin
CPT/HCPCS: 36415; 71045; 72170; 80053; 80305; 81003; 82550; 82553; 82962; 83880; 84439; 84443; 84484; 85025; 85610; 87040; 87086; 93005; 97162; 99285

== ENCOUNTER 2018-01-23 10:53 | Inpatient (IN) | payer OTHER, MEDICAID ==
[~2018-01-23] VITALS: Ht 160 cm; Wt 59.0 kg
[2018-01-23] MEDS ORDERED: SODIUM CHLORIDE 0.9% 500 ML IV ONE (11:45)
[2018-01-23 12:44] LABS: CHLORIDE 101 mEq/L (98-107); EOSINOPHILS % 1.8 % (0.0-5.0); HEMOGLOBIN. 10.3 g/dL (12.0-16.0); LYMPHOCYTES % 35.4 % (20.0-50.0); MEAN CORPUSCULAR HEMOGLOBIN 23.2 pg (28.0-32.0); MEAN CORPUSCULAR VOLUME 74.4 fL (81.0-99.0); MEAN PLATELET VOLUME 7.4 fl (7.4-10.4); MONOCYTES % 7.7 % (2.0-8.0); NEUTROPHILS % 54.1 % (40.0-76.0); PLATELET 385 x1000/uL (130-400); RED BLOOD CELL COUNT 4.44 mill/uL (4.2-5.4)
[2018-01-23 12:57] LABS: CLARITY URINE CLEAR (CLEAR); COLOR URINE YELLOW (YELLOW); KETONES URINE NEGATIVE (NEGATIVE); LEUKOCYTE ESTERASE URINE NEGATIVE (NEGATIVE); NITRITE URINE NEGATIVE (NEGATIVE); OCCULT BLOOD URINE NEGATIVE (NEGATIVE); PROTEIN URINE NEGATIVE (NEGATIVE); SPECIFIC GRAVITY URINE 1.016 (1.005-1.030)
[2018-01-23] MEDS ORDERED: GLUCAGON,HUMAN RECOMBINANT 1MG/VIAL IV ONE (13:15)
[2018-01-23] MEDS ORDERED: GLUCAGON,HUMAN RECOMBINANT 1MG/VIAL IV SCH (14:05)
[2018-01-23] MEDS ORDERED: IPRATROPIUM/ALBUTEROL 0.5-3(2.5)MG/3ML NEB INH PRN (14:45)
[2018-01-23] MEDS ORDERED: CARV3.1242 PO (15:03)
[2018-01-23] MEDS ORDERED: METO-385 PO (15:03)
[2018-01-23] MEDS ORDERED: DEXL60CA3 PO (15:07)
[2018-01-23] MEDS ORDERED: CLONIDINE 0.1MG TABLET PO PRN (15:30)
[2018-01-23 16:00] VITALS: BP 156/69
[2018-01-23] MEDS ORDERED: METOPROLOL TARTRATE 25MG TABLET PO SCH (16:30)
[2018-01-23] MEDS: LOSARTAN POTASSIUM 25 MG TABLET PO SCH (17:22)
[2018-01-23] MEDS: AMLODIPINE 5MG TABLET PO SCH (17:22)
[2018-01-23 18:16] VITALS: BP 156/69
[2018-01-23 19:50] VITALS: BP 128/72
[2018-01-23] MEDS ORDERED: DEXTROSE 50% WATER 50ML SYRINGE IV PRN (20:15)
[2018-01-23] MEDS: BLOOD SUGAR DIAGNOSTIC STRIP TEST SCH (21:00)
[2018-01-23] MEDS: DEXT 5%/0.45% NACL 1000ML 1,000 ML IV SCH (22:23)
[2018-01-24] VITALS (11 sets, daily range): BP systolic 109–187; BP diastolic 57–125
[2018-01-24] MEDS: LOSARTAN POTASSIUM 25 MG TABLET PO SCH ×3 (00:30→20:50)
[2018-01-24] MEDS: AMLODIPINE 5MG TABLET PO SCH ×3 (00:30→20:50)
[2018-01-24] MEDS: HYDROCODONE/ACETAMINOPHEN 5/325MG TABLET PO PRN ×2 (01:56→10:59)
[2018-01-24] MEDS: BLOOD SUGAR DIAGNOSTIC STRIP TEST SCH ×4 (06:52→21:13)
[2018-01-24 08:13] LABS: BASOPHILS % 1.6 % (0.0-2.0); EOSINOPHILS % 2.5 % (0.0-5.0); HEMATOCRIT. 25.3 % (36.0-48.0); HEMOGLOBIN. 8.1 g/dL (12.0-16.0); LYMPHOCYTES % 35.3 % (20.0-50.0); MEAN CORPUSCULAR HEMOGLOBIN 23.4 pg (28.0-32.0); MEAN CORPUSCULAR VOLUME 73.5 fL (81.0-99.0); MEAN PLATELET VOLUME 7.4 fl (7.4-10.4); MONOCYTES % 9.7 % (2.0-8.0); NEUTROPHILS % 50.9 % (40.0-76.0); PLATELET 317 x1000/uL (130-400); RED BLOOD CELL COUNT 3.44 mill/uL (4.2-5.4); RED CELL DISTRIBUTION WIDTH 18.5 % (11.6-14.6)
[2018-01-24 10:39] LABS: CHLORIDE 107 mEq/L (98-107)
[2018-01-24 10:48] LABS: CREATINE KINASE MB FRACTION < 0.5 ng/mL (0.5-3.6); LDL CHOLESTEROL 42 mg/dL (5-100)
[2018-01-24 10:49] LABS: CREATINE KINASE 53 IU/L (26-192); HDL CHOLESTEROL 58 mg/dL (40-59)
[2018-01-24] MEDS: DEXT 5%/0.45% NACL 1000ML 1,000 ML IV SCH (10:59)
[2018-01-24 12:43] LABS: CANNABINOID URINE SCREEN NEGATIVE (NEGATIVE)
[2018-01-24 12:44] LABS: *AMPHETAMINES SCREEN URINE NEGATIVE (NEGATIVE); *BARBITURATES SCREEN URINE NEGATIVE (NEGATIVE); *BENZODIAZEPINES SCREEN URINE NEGATIVE (NEGATIVE); *COCAINE SCREEN URINE NEGATIVE (NEGATIVE); OPIATES URINE SCREEN PRESUMTIVE POSITIVE (NEGATIVE)
[2018-01-24 12:45] LABS: METHADONE URINE SCREEN NEGATIVE (NEGATIVE); PHENCYCLIDINE URINE SCREEN NEGATIVE (NEGATIVE)
[2018-01-24 14:00] LABS: TOTAL IRON BINDING CAPACITY 376 ug/dL (250-450)
[2018-01-24 15:18] LABS: HEMATOCRIT 25.8 % (36.0-48.0); HEMOGLOBIN 8.3 g/dL (12.0-16.0)
[2018-01-24] MEDS ORDERED: POTASSIUM CHLORIDE 20MEQ TABLET SR PO NR (18:00)
[2018-01-24] MEDS ORDERED: HYDRALAZINE 20MG/ML VIAL IV PRN (18:00)
[2018-01-25 04:00] VITALS: BP 135/64
[2018-01-25] MEDS: DEXT 5%/0.45% NACL 1000ML 1,000 ML IV SCH (06:45)
[2018-01-25] MEDS: BLOOD SUGAR DIAGNOSTIC STRIP TEST SCH ×4 (06:54→20:29)
[2018-01-25 07:03] LABS: BASOPHILS % 1.1 % (0.0-2.0); EOSINOPHILS % 2.3 % (0.0-5.0); HEMOGLOBIN. 8.4 g/dL (12.0-16.0); LYMPHOCYTES % 29.1 % (20.0-50.0); MEAN CORPUSCULAR HEMOGLOBIN 23.9 pg (28.0-32.0); MEAN CORPUSCULAR VOLUME 74.4 fL (81.0-99.0); MEAN PLATELET VOLUME 7.5 fl (7.4-10.4); MONOCYTES % 9.9 % (2.0-8.0); NEUTROPHILS % 57.6 % (40.0-76.0); PLATELET 307 x1000/uL (130-400); RED CELL DISTRIBUTION WIDTH 18.6 % (11.6-14.6)
[2018-01-25 07:47] LABS: CHLORIDE 104 mEq/L (98-107)
[2018-01-25] MEDS: AMLODIPINE 5MG TABLET PO SCH ×2 (08:50→20:15)
[2018-01-25] MEDS: LOSARTAN POTASSIUM 25 MG TABLET PO SCH ×2 (08:50→20:15)
[2018-01-25 12:00] VITALS: BP 128/65
[2018-01-25] MEDS: HYDROCODONE/ACETAMINOPHEN 5/325MG TABLET PO PRN ×2 (12:11→20:28)
[2018-01-25 16:00] VITALS: BP 133/59
[2018-01-25] MEDS: FERROUS SULFATE 325MG TABLET PO SCH (17:22)
[2018-01-25 20:00] VITALS: BP 122/70
[2018-01-26 00:09] VITALS: BP 114/60
[2018-01-26 04:00] VITALS: BP 132/69
[2018-01-26] MEDS: HYDROCODONE/ACETAMINOPHEN 5/325MG TABLET PO PRN (04:18)
[2018-01-26] MEDS: BLOOD SUGAR DIAGNOSTIC STRIP TEST SCH ×4 (06:16→21:00)
[2018-01-26 07:15] LABS: HEMATOCRIT 27.7 % (36.0-48.0); HEMOGLOBIN 8.9 g/dL (12.0-16.0); MEAN CORPUSCULAR HEMOGLOBIN 23.7 pg (28.0-32.0); PLATELET 355 x1000/uL (130-400); RED BLOOD CELL COUNT 3.75 mill/uL (4.2-5.4)
[2018-01-26 07:32] LABS: CHLORIDE 105 mEq/L (98-107)
[2018-01-26 07:38] VITALS: BP 119/63
[2018-01-26] MEDS: FERROUS SULFATE 325MG TABLET PO SCH ×2 (07:50→18:44)
[2018-01-26] MEDS: LOSARTAN POTASSIUM 25 MG TABLET PO SCH ×2 (09:00→21:00)
[2018-01-26] MEDS: AMLODIPINE 5MG TABLET PO SCH ×2 (09:00→21:00)
[2018-01-26] MEDS: ASPIRIN 81MG TABLET PO SCH (09:07)
[2018-01-26] MEDS: CLOPIDOGREL 75MG TABLET PO SCH (09:08)
[2018-01-26 12:00] VITALS: BP_SYST 113; BP_SYST 127; BP_SYST 128; BP_DIAS 77; BP_DIAS 78
[2018-01-26] MEDS: ACETAMINOPHEN 650MG SUPP PR PRN (13:13)
[2018-01-26] MEDS: DEXT 5%/0.45% NACL 1000ML 1,000 ML IV SCH (14:30)
[2018-01-26 16:00] VITALS: BP 129/87
[2018-01-26] MEDS: PIPERACILLIN/TAZ 3.375G PREMIX 50 ML IV SCH (17:00)
[2018-01-26 20:00] VITALS: BP_SYST 104; BP_SYST 109; BP_SYST 98; BP_DIAS 60; BP_DIAS 64; BP_DIAS 65
[2018-01-27] VITALS: BP 111/64
[2018-01-27] MEDS: PIPERACILLIN/TAZ 3.375G PREMIX 50 ML IV SCH ×2 (00:44→10:04)
[2018-01-27 04:00] VITALS: BP_SYST 115; BP_SYST 126; BP_DIAS 65; BP_DIAS 94
[2018-01-27] MEDS: DEXT 5%/0.45% NACL 1000ML 1,000 ML IV SCH (05:24)
[2018-01-27 06:19] LABS: HEMATOCRIT 29.7 % (36.0-48.0); HEMOGLOBIN 9.5 g/dL (12.0-16.0); MEAN CORPUSCULAR HEMOGLOBIN 24.2 pg (28.0-32.0); MEAN CORPUSCULAR VOLUME 75.6 fL (81.0-99.0); PLATELET 330 x1000/uL (130-400); RED BLOOD CELL COUNT 3.93 mill/uL (4.2-5.4); RED CELL DISTRIBUTION WIDTH 18.8 % (11.6-14.6)
[2018-01-27 06:25] LABS: CHLORIDE 104 mEq/L (98-107)
[2018-01-27] MEDS: BLOOD SUGAR DIAGNOSTIC STRIP TEST SCH ×4 (07:20→21:25)
[2018-01-27 08:20] VITALS: BP_SYST 102; BP_SYST 116; BP_SYST 118; BP_DIAS 55; BP_DIAS 58; BP_DIAS 61
[2018-01-27] MEDS: AMLODIPINE 5MG TABLET PO SCH ×2 (09:00→21:00)
[2018-01-27] MEDS: LOSARTAN POTASSIUM 25 MG TABLET PO SCH ×2 (09:00→21:00)
[2018-01-27] MEDS: FERROUS SULFATE 325MG TABLET PO SCH ×2 (10:04→18:54)
[2018-01-27] MEDS: CLOPIDOGREL 75MG TABLET PO SCH (10:05)
[2018-01-27] MEDS: ASPIRIN 81MG TABLET PO SCH (10:05)
[2018-01-27 12:04] VITALS: BP 131/75
[2018-01-27] MEDS: HYDROCODONE/ACETAMINOPHEN 5/325MG TABLET PO PRN (16:10)
[2018-01-27 16:28] VITALS: BP 117/67
[2018-01-27] MEDS: LEVOFLOXACIN 500MG TABLET PO SCH (18:54)
[2018-01-27 20:00] VITALS: BP_SYST 111; BP_SYST 113; BP_SYST 115; BP_DIAS 67; BP_DIAS 74; BP_DIAS 77
[2018-01-28] VITALS (7 sets, daily range): BP systolic 99–157; BP diastolic 52–69
[2018-01-28 06:16] LABS: HEMATOCRIT 26.1 % (36.0-48.0); HEMOGLOBIN 8.4 g/dL (12.0-16.0); MEAN CORPUSCULAR HEMOGLOBIN 24.2 pg (28.0-32.0); MEAN CORPUSCULAR VOLUME 74.8 fL (81.0-99.0); PLATELET 302 x1000/uL (130-400); RED BLOOD CELL COUNT 3.49 mill/uL (4.2-5.4); RED CELL DISTRIBUTION WIDTH 18.6 % (11.6-14.6)
[2018-01-28] MEDS: BLOOD SUGAR DIAGNOSTIC STRIP TEST SCH ×4 (07:20→21:15)
[2018-01-28] MEDS: LEVOFLOXACIN 500MG TABLET PO SCH (09:51)
[2018-01-28] MEDS: ASPIRIN 81MG TABLET PO SCH (09:51)
[2018-01-28] MEDS: FERROUS SULFATE 325MG TABLET PO SCH ×2 (09:51→17:18)
[2018-01-28] MEDS: CLOPIDOGREL 75MG TABLET PO SCH (09:51)
[2018-01-28] MEDS: LOSARTAN POTASSIUM 25 MG TABLET PO SCH ×2 (09:57→21:00)
[2018-01-28] MEDS: AMLODIPINE 5MG TABLET PO SCH ×2 (09:57→21:00)
[2018-01-28] MEDS: ACETAMINOPHEN 650MG SUPP PR PRN (10:10)
[2018-01-28 11:25] LABS: CHLORIDE 103 mEq/L (98-107)
[2018-01-28] MEDS ORDERED: LEVOFLOXACIN 500MG PREMIX 100 ML IV SCH (12:15)
[2018-01-28] MEDS ORDERED: DEXT 5%/0.45% NACL 1000ML 1,000 ML IV SCH (12:15)
[2018-01-28] MEDS ORDERED: LEVOFLOXACIN 250MG PREMIX 50 ML IV SCH (13:00)
[2018-01-28] MEDS ORDERED: METRONIDAZOLE 500 MG PREMIX 100 ML IV SCH (14:00)
[2018-01-28] MEDS: HYDROCODONE/ACETAMINOPHEN 5/325MG TABLET PO PRN (17:19)
[2018-01-28] MEDS ORDERED: METRONIDAZOLE 500MG TABLET PO SCH (22:00)
[2018-01-29] MEDS ORDERED: LEVOFLOXACIN 250MG TABLET PO SCH (11:00)
== END 2018-01-28 21:55 | DRG 310 ==
LOC: ER 10:53 → EDBEDREQ 11:43 → 6WST 13:15 → OBSVTOIN 13:15 → INTOOBSV 13:15 → EDBEDREQ 13:19 → EDBEDREQTM 13:19 → ENRESERV 13:24
PROVIDERS: ADMIT Internal Medicine; ATTEND Internal Medicine
DX: R00.1 Bradycardia, unspecified (principal); I10 Essential (primary) hypertension; I25.10 Atherosclerotic heart disease of native coronary artery without angina pectoris; K21.9 Gastro-esophageal reflux disease without esophagitis; E87.6 Hypokalemia; D64.9 Anemia, unspecified; I27.20 Pulmonary hypertension, unspecified; F03.90 Unspecified dementia, unspecified severity, without behavioral disturbance, psychotic disturbance, mood disturbance, and anxiety; D72.819 Decreased white blood cell count, unspecified; E11.649 Type 2 diabetes mellitus with hypoglycemia without coma; E61.1 Iron deficiency; E78.00 Pure hypercholesterolemia, unspecified; E78.5 Hyperlipidemia, unspecified; F32.9 Major depressive disorder, single episode, unspecified; J44.9 Chronic obstructive pulmonary disease, unspecified; K59.00 Constipation, unspecified; Z79.899 Other long term (current) drug therapy; Z85.028 Personal history of other malignant neoplasm of stomach; I25.2 Old myocardial infarction; Z85.3 Personal history of malignant neoplasm of breast; Z87.891 Personal history of nicotine dependence; Z90.3 Acquired absence of stomach [part of]
CPT/HCPCS: 36415; 70450; 71045; 74018; 80048; 80053; 80061; 80305; 81003; 82270; 82550; 82553; 82728; 82962; 83540; 83550; 83735; 84145; 84484; 85014; 85018; 85025; 85027; 85044; 85379; 87040; 87086; 93005; 93306; 93970; 96361; 96374; 97116; 97162; 99291; J1610; J1956; J2543; J3490; J7030; J7040; J7620

== ENCOUNTER 2018-05-16 11:02 | Inpatient (IN) | payer OTHER, MEDICAID ==
[~2018-05-16] VITALS: Ht 162.6 cm; Wt 47.2 kg
[~2018-05-16 11:02] MED LIST changes: -AMLO10TA4 PO; -ASPI-986 PO; -LOSA50TA3 PO; -MECL-109 PO; -OMEP40CA34 PO; -SIMV20TA6 PO
[2018-05-16 12:31] LABS: BASOPHILS % 1.1 % (0.0-2.0); EOSINOPHILS % 0.8 % (0.0-5.0); HEMATOCRIT. 33.1 % (36.0-48.0); HEMOGLOBIN. 10.9 g/dL (12.0-16.0); LYMPHOCYTES % 27.6 % (20.0-50.0); MEAN CORPUSCULAR HEMOGLOBIN 27.7 pg (28.0-32.0); MEAN CORPUSCULAR VOLUME 84.1 fL (81.0-99.0); MEAN PLATELET VOLUME 7.4 fl (7.4-10.4); MONOCYTES % 9.5 % (2.0-8.0); PLATELET 357 x1000/uL (130-400); RED BLOOD CELL COUNT 3.93 mill/uL (4.2-5.4)
[2018-05-16 12:36] LABS: CHLORIDE 104 mEq/L (98-107)
[2018-05-16 13:14] LABS: COLOR URINE YELLOW (YELLOW); KETONES URINE NEGATIVE (NEGATIVE); LEUKOCYTE ESTERASE URINE NEGATIVE (NEGATIVE); NITRITE URINE NEGATIVE (NEGATIVE); OCCULT BLOOD URINE NEGATIVE (NEGATIVE); PH URINE 6.5 (4.5-8.0); PROTEIN URINE NEGATIVE (NEGATIVE); SPECIFIC GRAVITY URINE 1.015 (1.005-1.030)
[2018-05-16 13:18] LABS: CLARITY URINE SL HAZY (CLEAR)
[2018-05-16] MEDS ORDERED: ACETAMINOPHEN 325MG TABLET PO ONE (15:15)
[2018-05-16] MEDS ORDERED: SODIUM CHLORIDE 0.9% 500 ML IV ONE (15:15)
[2018-05-16] MEDS ORDERED: KETOROLAC 15MG/ML VIAL IV ONE (15:15)
[2018-05-16] MEDS ORDERED: METOCLOPRAMIDE HCL 10MG/2ML VIAL IV ONE (15:15)
[2018-05-16 16:43] LABS: BG BASE EXCESS -3.4 mmol/L (-2.0-2.0); BG CARBOXYHEMOGLOBIN 0.8 % (0.5-1.5); BG DEOXYHEMOGLOBIN 2.6 % (0.0-5.0); BG FRACTION INSPIRED OXYGEN 21; BG HCO3 ACT 20.1 mmol/L (22.0-26.0); BG METHEMOGLOBIN 0.3 % (0.0-1.5); BG OXYGEN SATURATION 97.4 % (92.0-98.5); BG OXYHEMOGLOBIN 96.3 % (94.0-97.0); BG PCO2 30.6 mmHg (35.0-45.0); BG PH 7.435 (7.350-7.450); BG PO2 99.7 mmHg (75.0-100.0); BG SAMPLE SITE RIGHT BRACHIAL; BG TOTAL HEMOGLOBIN 10.2 g/dL (12.0-18.0); BG VENT MODE ROOM AIR
[2018-05-16] MEDS ORDERED: ACETAMINOPHEN 650MG SUPP PR PRN (17:45)
[2018-05-16] MEDS ORDERED: ONDANSETRON HCL 4MG/2ML INJ IV PRN (17:45)
[2018-05-16] MEDS ORDERED: DIPHENHYDRAMINE 50MG/ML VIAL IV PRN (17:45)
[2018-05-16] MEDS ORDERED: DOCUSATE SODIUM 100MG CAPSULE PO PRN (17:45)
[2018-05-16] MEDS ORDERED: MAGNESIUM/ALUMINUM HYDROXIDE/SIMETHICONE 30ML UDC PO PRN (17:45)
[2018-05-16] MEDS ORDERED: GUAIFENESIN 200MG/10ML SUGAR FREE UDC PO PRN (17:45)
[2018-05-16] MEDS ORDERED: IPRATROPIUM/ALBUTEROL 0.5-3(2.5)MG/3ML NEB INH PRN (17:45)
[2018-05-16] MEDS ORDERED: NA PHOS,M-B/NA PHOS,DI-BA ENEMA 118ML PR PRN (21:00)
[2018-05-16] MEDS ORDERED: TRAMADOL 50MG TABLET PO PRN (21:00)
[2018-05-16] MEDS ORDERED: HYDROCODONE/ACETAMINOPHEN 5/325MG TABLET PO PRN (21:00)
[2018-05-16 21:30] VITALS: BP 139/78
[2018-05-16] MEDS: INSULIN LISPRO 100 UNITS/ML SUBCUT SCH (22:00)
[2018-05-16] MEDS ORDERED: DEXT 5%/0.45% NACL 1000ML 1,000 ML IV SCH (22:09)
[2018-05-16] MEDS ORDERED: DEXTROSE 50% WATER 50ML SYRINGE IV PRN (22:09)
[2018-05-16] MEDS: BLOOD SUGAR DIAGNOSTIC STRIP TEST SCH (22:52)
[2018-05-16] MEDS: PANTOPRAZOLE SODIUM 40 MG/VIAL IV SCH (22:52)
[2018-05-17] VITALS: BP 139/78
[2018-05-17 04:00] VITALS: BP 144/78
[2018-05-17] MEDS: BLOOD SUGAR DIAGNOSTIC STRIP TEST SCH ×4 (06:42→21:38)
[2018-05-17 06:52] LABS: BASOPHILS % 1.2 % (0.0-2.0); EOSINOPHILS % 1.1 % (0.0-5.0); HEMATOCRIT. 29.5 % (36.0-48.0); HEMOGLOBIN. 9.9 g/dL (12.0-16.0); LYMPHOCYTES % 22.5 % (20.0-50.0); MEAN CORPUSCULAR HEMOGLOBIN 28.2 pg (28.0-32.0); MEAN PLATELET VOLUME 7.5 fl (7.4-10.4); MONOCYTES % 11.2 % (2.0-8.0); PLATELET 341 x1000/uL (130-400); RED BLOOD CELL COUNT 3.52 mill/uL (4.2-5.4); RED CELL DISTRIBUTION WIDTH 14.9 % (11.6-14.6)
[2018-05-17 07:17] LABS: CHLORIDE 105 mEq/L (98-107)
[2018-05-17 07:36] LABS: LDL CHOLESTEROL 88 mg/dL (5-100)
[2018-05-17 07:37] LABS: HDL CHOLESTEROL 52 mg/dL (40-59)
[2018-05-17 07:38] LABS: T4 FREE 0.84 ng/dL (0.76-1.46)
[2018-05-17] MEDS: INSULIN LISPRO 100 UNITS/ML SUBCUT SCH ×4 (07:38→20:37)
[2018-05-17 08:00] VITALS: BP 122/62
[2018-05-17] MEDS: PANTOPRAZOLE SODIUM 40 MG/VIAL IV SCH (08:24)
[2018-05-17 12:00] VITALS: BP 90/65
[2018-05-17 16:00] VITALS: BP 146/69
[2018-05-17 20:07] VITALS: BP 157/73
[2018-05-18] VITALS (7 sets, daily range): BP systolic 116–163; BP diastolic 55–73
[2018-05-18] MEDS: BLOOD SUGAR DIAGNOSTIC STRIP TEST SCH ×4 (02:00→14:48)
[2018-05-18 06:45] LABS: HEMATOCRIT 31.9 % (36.0-48.0); HEMOGLOBIN 10.5 g/dL (12.0-16.0); MEAN CORPUSCULAR HEMOGLOBIN 27.6 pg (28.0-32.0); MEAN CORPUSCULAR VOLUME 83.7 fL (81.0-99.0); PLATELET 353 x1000/uL (130-400); RED BLOOD CELL COUNT 3.81 mill/uL (4.2-5.4)
[2018-05-18 06:56] LABS: CHLORIDE 106 mEq/L (98-107)
[2018-05-18] MEDS: INSULIN LISPRO 100 UNITS/ML SUBCUT SCH ×2 (07:44→12:50)
[2018-05-18] MEDS: PANTOPRAZOLE SODIUM 40 MG/VIAL IV SCH (09:19)
== END 2018-05-18 16:55 | disposition hospice, home (50) | DRG 639 ==
LOC: ER 11:02 → 6WST 15:11 → ENRESERV 20:14
PROVIDERS: ADMIT Internal Medicine; ATTEND Internal Medicine
DX: E11.649 Type 2 diabetes mellitus with hypoglycemia without coma (principal); D64.9 Anemia, unspecified; D72.819 Decreased white blood cell count, unspecified; R26.9 Unspecified abnormalities of gait and mobility; R42 Dizziness and giddiness; E78.5 Hyperlipidemia, unspecified; H54.7 Unspecified visual loss; H91.90 Unspecified hearing loss, unspecified ear; I10 Essential (primary) hypertension; Z85.028 Personal history of other malignant neoplasm of stomach; Z85.3 Personal history of malignant neoplasm of breast; Z79.899 Other long term (current) drug therapy
CPT/HCPCS: 36415; 36600; 71045; 80048; 80061; 82375; 82805; 82962; 83880; 84439; 84443; 84484; 85027; 87804; 93005; 96361; 96374; 96375; 97116; 97162; 97530; 99285; C9113; J1885; J2765

== ENCOUNTER 2018-09-18 08:53 | Inpatient (IN) | payer MEDICARE, OTHER ==
[~2018-09-18] VITALS: Ht 167.6 cm; Wt 55.3 kg
[2018-09-18] MEDS ORDERED: ONDANSETRON HCL 4MG/2ML INJ IV ONE (09:30)
[2018-09-18] MEDS ORDERED: KETOROLAC 30MG/ML VIAL IV ONE (09:30)
[2018-09-18 09:46] LABS: HEMATOCRIT. 23.2 % (36.0-48.0); HEMOGLOBIN. 7.3 g/dL (12.0-16.0); MEAN CORPUSCULAR HEMOGLOBIN 22.5 pg (28.0-32.0); MEAN CORPUSCULAR VOLUME 71.4 fL (81.0-99.0); MEAN PLATELET VOLUME 7.1 fl (7.4-10.4); PLATELET 335 x1000/uL (130-400); RED BLOOD CELL COUNT 3.24 mill/uL (4.2-5.4); RED CELL DISTRIBUTION WIDTH 18.1 % (11.6-14.6)
[2018-09-18 09:51] LABS: CHLORIDE 108 mEq/L (98-107)
[2018-09-18 10:15] LABS: PLATELET ESTIMATE NORMAL
[2018-09-18 10:16] LABS: PROTHROMBIN TIME 10.5 sec (9.6-11.0)
[2018-09-18] MEDS ORDERED: SODIUM CHLORIDE 0.9% 1,000 ML IV ONE (10:39)
[2018-09-18 15:28] LABS: CLARITY URINE CLEAR (CLEAR); COLOR URINE YELLOW (YELLOW); KETONES URINE NEGATIVE (NEGATIVE); LEUKOCYTE ESTERASE URINE NEGATIVE (NEGATIVE); NITRITE URINE NEGATIVE (NEGATIVE); OCCULT BLOOD URINE NEGATIVE (NEGATIVE); PROTEIN URINE NEGATIVE (NEGATIVE); SPECIFIC GRAVITY URINE 1.011 (1.005-1.030)
[2018-09-18 23:00] VITALS: BP 129/58
[2018-09-18 23:30] VITALS: BP 129/58
[2018-09-19] VITALS (9 sets, daily range): BP systolic 125–144; BP diastolic 46–77
[2018-09-19] MEDS ORDERED: CLONIDINE 0.1MG TABLET PO PRN (00:30)
[2018-09-19] MEDS ORDERED: ONDANSETRON HCL 4MG/2ML INJ IV PRN (00:30)
[2018-09-19 07:31] LABS: VITAMIN B12 SERUM 479 pg/mL (211-911)
[2018-09-19 08:05] LABS: TOTAL IRON BINDING CAPACITY 470 ug/dL (250-450)
[2018-09-19] MEDS: ACETAMINOPHEN 325MG TABLET PO PRN (08:25)
[2018-09-19] MEDS ORDERED: POTASSIUM CHLORIDE INJ 40 MEQ in DEXT 5% WATER 250 ML IV NR (11:30)
[2018-09-19] MEDS ORDERED: DIPHENHYDRAMINE 50MG/ML VIAL IV PRN (15:45)
[2018-09-19] MEDS ORDERED: HYDRALAZINE 20MG/ML VIAL IV PRN (15:45)
[2018-09-19] MEDS ORDERED: DEXT 5%/0.45% NACL 1000ML 1,000 ML IV SCH (15:45)
[2018-09-19] MEDS ORDERED: MORPHINE SULFATE 4 MG/ML CPJ (NOT FOR IM USE) IV PRN (16:00)
[2018-09-19] MEDS ORDERED: SORBITOL 70% SOLN 30ML PO SCH ×2 (16:00→20:00)
[2018-09-19] MEDS: BLOOD SUGAR DIAGNOSTIC STRIP TEST SCH ×2 (18:06→21:12)
[2018-09-19] MEDS: PANTOPRAZOLE SODIUM 40 MG/VIAL IV SCH (18:11)
[2018-09-19] MEDS ORDERED: HYDROCODONE/ACETAMINOPHEN 10/325MG TABLET PO PRN (23:15)
[2018-09-19] MEDS ORDERED: HYDROCODONE/ACETAMINOPHEN 5/325MG TABLET PO PRN (23:15)
[2018-09-19] MEDS ORDERED: ACETAMINOPHEN 325MG TABLET PO PRN (23:15)
[2018-09-20] VITALS: BP 150/69
[2018-09-20 04:00] VITALS: BP 116/58
[2018-09-20 06:29] VITALS: BP_SYST 115; BP_SYST 118; BP_DIAS 59; BP_DIAS 60
[2018-09-20] MEDS: BLOOD SUGAR DIAGNOSTIC STRIP TEST SCH ×4 (06:38→21:25)
[2018-09-20 08:00] VITALS: BP 137/62
[2018-09-20 08:20] LABS: BASOPHILS % 1.6 % (0.0-2.0); EOSINOPHILS % 0.4 % (0.0-5.0); HEMATOCRIT. 32.9 % (36.0-48.0); LYMPHOCYTES % 22.4 % (20.0-50.0); MEAN CORPUSCULAR HEMOGLOBIN 23.6 pg (28.0-32.0); MEAN CORPUSCULAR VOLUME 74.6 fL (81.0-99.0); MEAN PLATELET VOLUME 7.9 fl (7.4-10.4); MONOCYTES % 10.5 % (2.0-8.0); NEUTROPHILS % 65.1 % (40.0-76.0); PLATELET 370 x1000/uL (130-400); RED BLOOD CELL COUNT 4.41 mill/uL (4.2-5.4); RED CELL DISTRIBUTION WIDTH 18.2 % (11.6-14.6)
[2018-09-20 08:29] LABS: HEMOGLOBIN. 10.4 g/dL (12.0-16.0)
[2018-09-20] MEDS: PANTOPRAZOLE SODIUM 40 MG/VIAL IV SCH (09:46)
[2018-09-20 09:48] LABS: CHLORIDE 114 mEq/L (98-107)
[2018-09-20 10:01] LABS: T4 FREE 0.77 ng/dL (0.76-1.46)
[2018-09-20 10:05] LABS: LDL CHOLESTEROL 85 mg/dL (5-100)
[2018-09-20 10:14] LABS: HDL CHOLESTEROL 68 mg/dL (40-59)
[2018-09-20] MEDS: DEXTROSE 50% WATER 50ML SYRINGE IV PRN ×2 (11:45→18:17)
[2018-09-20] MEDS ORDERED: SIMETHICONE 40 MG/0.6 ML 30ML ONE ×2 (13:56→14:14)
[2018-09-20] MEDS ORDERED: BACTERIOSTATIC SODIUM CHLORIDE 0.9% 30ML VIAL IJ ONE (13:56)
[2018-09-20] MEDS ORDERED: FENTANYL CITRATE/PF 50MCG/ML 2ML VIAL ONE (14:14)
[2018-09-20] MEDS ORDERED: MIDAZOLAM HCL 5 MG/5 ML VIAL ONE (14:14)
[2018-09-20] MEDS ORDERED: MIDAZOLAM HCL 2 MG/2 ML VIAL IV PRN (14:15)
[2018-09-20] MEDS ORDERED: FENTANYL CITRATE/PF 50MCG/ML 2ML VIAL IV PRN (14:16)
[2018-09-20 16:00] VITALS: BP 158/47
[2018-09-20] MEDS ORDERED: FERROUS SULFATE 325MG TABLET PO SCH (17:40)
[2018-09-20] MEDS: ACETAMINOPHEN 325MG TABLET PO PRN (18:39)
[2018-09-20 20:00] VITALS: BP 129/67
[2018-09-21] VITALS (8 sets, daily range): BP systolic 130–164; BP diastolic 62–89
[2018-09-21 06:42] LABS: HEMATOCRIT 30.9 % (36.0-48.0); MEAN CORPUSCULAR HEMOGLOBIN 23.5 pg (28.0-32.0); MEAN CORPUSCULAR VOLUME 72.6 fL (81.0-99.0); PLATELET 327 x1000/uL (130-400); RED BLOOD CELL COUNT 4.26 mill/uL (4.2-5.4); RED CELL DISTRIBUTION WIDTH 18.6 % (11.6-14.6)
[2018-09-21 07:13] LABS: CHLORIDE 107 mEq/L (98-107)
[2018-09-21] MEDS: BLOOD SUGAR DIAGNOSTIC STRIP TEST SCH ×3 (07:27→18:05)
[2018-09-21] MEDS: PANTOPRAZOLE SODIUM 40 MG/VIAL IV SCH (09:41)
[2018-09-21] MEDS: FERROUS SULFATE 325MG TABLET PO SCH ×3 (09:42→18:05)
[2018-09-21] MEDS ORDERED: SODIUM CHLORIDE 0.9% 250 ML IV ONE (11:30)
== END 2018-09-21 20:05 | disposition home or self-care (01) | DRG 378 ==
LOC: ER 09:19 → 8WST 12:26 → EDBEDREQ 12:29 → ENRESERV 21:35
PROVIDERS: ADMIT Internal Medicine; ATTEND Internal Medicine
PROC: 30233N1 Transfusion of Nonautologous Red Blood Cells into Peripheral Vein, Percutaneous Approach (ICD-10-PCS; 2018-09-19)
PROC: 0DB68ZX Excision of Stomach, Via Natural or Artificial Opening Endoscopic, Diagnostic (ICD-10-PCS; principal; 2018-09-20)
PROC: 0DBL8ZZ Excision of Transverse Colon, Via Natural or Artificial Opening Endoscopic (ICD-10-PCS; 2018-09-20)
DX: K29.71 Gastritis, unspecified, with bleeding (principal); K91.89 Other postprocedural complications and disorders of digestive system; D50.9 Iron deficiency anemia, unspecified; E87.6 Hypokalemia; D72.819 Decreased white blood cell count, unspecified; E11.9 Type 2 diabetes mellitus without complications; I10 Essential (primary) hypertension; C50.919 Malignant neoplasm of unspecified site of unspecified female breast; E11.649 Type 2 diabetes mellitus with hypoglycemia without coma; E78.5 Hyperlipidemia, unspecified; K63.5 Polyp of colon; E86.0 Dehydration; R26.9 Unspecified abnormalities of gait and mobility; R00.1 Bradycardia, unspecified; I25.10 Atherosclerotic heart disease of native coronary artery without angina pectoris; K31.7 Polyp of stomach and duodenum; Z85.3 Personal history of malignant neoplasm of breast; Z85.028 Personal history of other malignant neoplasm of stomach; Z90.3 Acquired absence of stomach [part of]; Z92.3 Personal history of irradiation; I25.2 Old myocardial infarction; Z86.73 Personal history of transient ischemic attack (TIA), and cerebral infarction without residual deficits; Z95.5 Presence of coronary angioplasty implant and graft; Z79.899 Other long term (current) drug therapy
CPT/HCPCS: 36415; 74176; 80061; 82270; 82378; 82607; 82962; 83540; 83550; 84439; 84443; 85027; 86677; 86850; 86900; 86920; 88305; 88312; 88313; 93005; 93970; 96361; 96374; 96375; 97116; 97162; 99152; 99153; 99285; C9113; J1885; J2250; J2405; J3010; J3480; J3490; J7030; J7040; J7050; J7060; P9016; G0500

== ENCOUNTER 2018-10-08 10:52 | Inpatient (IN) | payer MEDICARE, OTHER ==
[~2018-10-08] VITALS: Ht 162.6 cm; Wt 48.5 kg
[2018-10-08] MEDS ORDERED: SODIUM CHLORIDE 0.9% 500 ML IV ONE (11:07)
[2018-10-08 12:28] LABS: BASOPHILS % 1.1 % (0.0-2.0); EOSINOPHILS % 0.4 % (0.0-5.0); HEMATOCRIT. 38.2 % (36.0-48.0); HEMOGLOBIN. 12.1 g/dL (12.0-16.0); LYMPHOCYTES % 14.3 % (20.0-50.0); MEAN CORPUSCULAR HEMOGLOBIN 24.1 pg (28.0-32.0); MEAN CORPUSCULAR VOLUME 76.3 fL (81.0-99.0); MEAN PLATELET VOLUME 7.5 fl (7.4-10.4); MONOCYTES % 7.5 % (2.0-8.0); NEUTROPHILS % 76.7 % (40.0-76.0); PLATELET 315 x1000/uL (130-400); RED CELL DISTRIBUTION WIDTH 22.8 % (11.6-14.6)
[2018-10-08 12:36] LABS: CHLORIDE 104 mEq/L (98-107)
[2018-10-08 12:37] LABS: PARTIAL THROMBOPLASTIN TIME 26.1 sec (23.4-31.0); PROTHROMBIN TIME 10.5 sec (9.6-11.0)
[2018-10-08 12:49] LABS: PLATELET ESTIMATE NORMAL
[2018-10-08] MEDS ORDERED: ACETAMINOPHEN 325MG TABLET PO ONE (13:00)
[2018-10-08 13:28] LABS: CLARITY URINE CLOUDY (CLEAR); COLOR URINE AMBER (YELLOW); KETONES URINE 2+ (NEGATIVE); LEUKOCYTE ESTERASE URINE 2+ (NEGATIVE); NITRITE URINE NEGATIVE (NEGATIVE); OCCULT BLOOD URINE NEGATIVE (NEGATIVE); PROTEIN URINE TRACE (NEGATIVE); SPECIFIC GRAVITY URINE 1.028 (1.005-1.030)
[2018-10-08] MEDS ORDERED: CEFTRIAXONE 1 G PREMIX 50 ML IV ONE (14:45)
[2018-10-08 21:30] VITALS: BP 145/87
[2018-10-08 22:00] VITALS: BP 145/87
[2018-10-08] MEDS ORDERED: CLONIDINE 0.1MG TABLET PO PRN (23:00)
[2018-10-08] MEDS ORDERED: ACETAMINOPHEN 650MG/20.3ML UDC PO PRN (23:00)
[2018-10-08] MEDS ORDERED: CEFTRIAXONE 1 G PREMIX 50 ML IV SCH (23:00)
[2018-10-08] MEDS ORDERED: ONDANSETRON HCL 4MG/2ML INJ IV PRN (23:00)
[2018-10-08 23:54] VITALS: BP 137/81
[2018-10-09] MEDS: SODIUM CHLORIDE 0.45% 1,000 ML IV SCH ×2 (00:45→16:28)
[2018-10-09 04:00] VITALS: BP 133/84
[2018-10-09 06:59] LABS: BASOPHILS % 1.2 % (0.0-2.0); EOSINOPHILS % 1.6 % (0.0-5.0); HEMOGLOBIN. 10.6 g/dL (12.0-16.0); LYMPHOCYTES % 24.1 % (20.0-50.0); MEAN CORPUSCULAR HEMOGLOBIN 24.4 pg (28.0-32.0); MEAN CORPUSCULAR VOLUME 75.9 fL (81.0-99.0); MONOCYTES % 8.5 % (2.0-8.0); NEUTROPHILS % 64.6 % (40.0-76.0); PLATELET 302 x1000/uL (130-400); RED BLOOD CELL COUNT 4.35 mill/uL (4.2-5.4); RED CELL DISTRIBUTION WIDTH 22.5 % (11.6-14.6)
[2018-10-09 07:13] LABS: CHLORIDE 104 mEq/L (98-107)
[2018-10-09 08:00] VITALS: BP 145/91
[2018-10-09] MEDS ORDERED: PANTOPRAZOLE SODIUM 40 MG/VIAL IV SCH (09:00)
[2018-10-09] MEDS ORDERED: ENOXAPARIN 40MG/0.4ML SYR SUBCUT SCH (09:00)
[2018-10-09] MEDS ORDERED: POTASSIUM CHLORIDE 20MEQ TABLET SR PO NR (11:30)
[2018-10-09 12:00] VITALS: BP 138/79
[2018-10-09 16:00] VITALS: BP 128/79
[2018-10-09] MEDS ORDERED: CEFTRIAXONE 1 G PREMIX 50 ML IV SCH (16:00)
== END 2018-10-09 19:05 | disposition home or self-care (01) | DRG 690 ==
LOC: ER 10:52 → 7WST 16:20 → EDBEDREQ 16:27 → ENRESERV 20:27
PROVIDERS: ADMIT Internal Medicine; ATTEND Internal Medicine
DX: N39.0 Urinary tract infection, site not specified (principal); E86.0 Dehydration; E11.9 Type 2 diabetes mellitus without complications; I25.10 Atherosclerotic heart disease of native coronary artery without angina pectoris; K80.20 Calculus of gallbladder without cholecystitis without obstruction; I11.9 Hypertensive heart disease without heart failure; D64.9 Anemia, unspecified; Z85.028 Personal history of other malignant neoplasm of stomach; Z85.3 Personal history of malignant neoplasm of breast; Z86.73 Personal history of transient ischemic attack (TIA), and cerebral infarction without residual deficits; Z90.3 Acquired absence of stomach [part of]
CPT/HCPCS: 36415; 71045; 74176; 76705; 80048; 82962; 83036; 83880; 84484; 93005; 96361; 96365; 99285; C9113; J0696; J1650; J7040

== ENCOUNTER 2018-12-28 09:30 | Emergency (ER) | payer MEDICARE, OTHER ==
[~2018-12-28] VITALS: Ht 167.6 cm; Wt 59.0 kg
[2018-12-28] MEDS ORDERED: METOCLOPRAMIDE HCL 10MG/2ML VIAL IV ONE (10:00)
[2018-12-28] MEDS ORDERED: KETOROLAC 15MG/ML VIAL IV ONE (10:00)
[2018-12-28 10:40] LABS: BASOPHILS % 0.8 % (0.0-2.0); EOSINOPHILS % 1.1 % (0.0-5.0); HEMATOCRIT. 35.2 % (36.0-48.0); HEMOGLOBIN. 11.4 g/dL (12.0-16.0); LYMPHOCYTES % 20.1 % (20.0-50.0); MEAN CORPUSCULAR HEMOGLOBIN 27.7 pg (28.0-32.0); MEAN CORPUSCULAR VOLUME 85.2 fL (81.0-99.0); MEAN PLATELET VOLUME 7.5 fl (7.4-10.4); MONOCYTES % 8.9 % (2.0-8.0); NEUTROPHILS % 69.1 % (40.0-76.0); PLATELET 355 x1000/uL (130-400); RED BLOOD CELL COUNT 4.13 mill/uL (4.2-5.4); RED CELL DISTRIBUTION WIDTH 13.3 % (11.6-14.6)
[2018-12-28 10:43] LABS: CHLORIDE 97 mEq/L (98-107); PROTHROMBIN TIME 10.2 sec (9.6-11.0)
[2018-12-28] MEDS ORDERED: SODIUM CHLORIDE 0.9% 1,000 ML IV ONE (12:18)
[2018-12-28 12:59] LABS: CLARITY URINE CLEAR (CLEAR); COLOR URINE YELLOW (YELLOW); KETONES URINE NEGATIVE (NEGATIVE); LEUKOCYTE ESTERASE URINE NEGATIVE (NEGATIVE); NITRITE URINE NEGATIVE (NEGATIVE); OCCULT BLOOD URINE NEGATIVE (NEGATIVE); PROTEIN URINE NEGATIVE (NEGATIVE)
[2018-12-28 13:50] VITALS: BP 118/80
== END 2018-12-28 14:28 | disposition home or self-care (01) ==
LOC: ER 09:30
DX: R11.2 Nausea with vomiting, unspecified (principal); R05 Cough; I11.9 Hypertensive heart disease without heart failure; E11.9 Type 2 diabetes mellitus without complications; Z86.73 Personal history of transient ischemic attack (TIA), and cerebral infarction without residual deficits
CPT/HCPCS: 36415; 71045; 80053; 81003; 83605; 84145; 84484; 85025; 85610; 87086; 93005; 96361; 96374; 96375; 99284; J1885; J2765; J7030

== ENCOUNTER 2019-01-04 08:00 | Emergency (ER) | payer MEDICARE, OTHER ==
[~2019-01-04] VITALS: Ht 157.5 cm; Wt 59.0 kg
[2019-01-04] MEDS ORDERED: IBUPROFEN 600MG TABLET PO ONE (09:45)
[2019-01-04 10:04] VITALS: BP 154/74
== END 2019-01-04 11:30 | disposition home or self-care (01) ==
LOC: ER 08:00
DX: K08.89 Other specified disorders of teeth and supporting structures (principal); R11.10 Vomiting, unspecified; E11.9 Type 2 diabetes mellitus without complications; I10 Essential (primary) hypertension; Z86.73 Personal history of transient ischemic attack (TIA), and cerebral infarction without residual deficits
CPT/HCPCS: 82962; 99283

== ENCOUNTER 2019-01-12 15:06 | Emergency (ER) | payer MEDICARE, OTHER ==
[~2019-01-12] VITALS: Ht 167.6 cm; Wt 60.0 kg
[2019-01-12] MEDS ORDERED: SODIUM CHLORIDE 0.9% 1000ML BAG (SEPSIS BOLUS) IV ONE (15:30)
[2019-01-12 15:43] LABS: BG BASE EXCESS 1.8 mmol/L (-2.0-2.0); BG CARBOXYHEMOGLOBIN 0.4 % (0.5-1.5); BG DEOXYHEMOGLOBIN 2.8 % (0.0-5.0); BG HCO3 ACT 25.2 mmol/L (22.0-26.0); BG METHEMOGLOBIN 0.1 % (0.0-1.5); BG OXYGEN SATURATION 97.2 % (92.0-98.5); BG OXYHEMOGLOBIN 96.7 % (94.0-97.0); BG PCO2 35.4 mmHg (35.0-45.0); BG SAMPLE SITE RIGHT BRACHIAL; BG TOTAL HEMOGLOBIN 11.9 g/dL (12.0-18.0); BG VENT MODE ROOM AIR
[2019-01-12 16:04] LABS: CHLORIDE 102 mEq/L (98-107); PROTHROMBIN TIME 10.5 sec (9.6-11.0)
[2019-01-12 16:06] LABS: BASOPHILS % 1.5 % (0.0-2.0); EOSINOPHILS % 1.8 % (0.0-5.0); HEMATOCRIT. 34.1 % (36.0-48.0); HEMOGLOBIN. 11.3 g/dL (12.0-16.0); LYMPHOCYTES % 25.4 % (20.0-50.0); MEAN CORPUSCULAR HEMOGLOBIN 28.3 pg (28.0-32.0); MEAN CORPUSCULAR VOLUME 85.3 fL (81.0-99.0); MEAN PLATELET VOLUME 7.1 fl (7.4-10.4); MONOCYTES % 9.7 % (2.0-8.0); NEUTROPHILS % 61.6 % (40.0-76.0); PLATELET 311 x1000/uL (130-400); RED CELL DISTRIBUTION WIDTH 12.9 % (11.6-14.6)
[2019-01-12 16:13] LABS: CREATINE KINASE 49 IU/L (26-192)
[2019-01-12 16:16] LABS: CREATINE KINASE MB FRACTION < 1.0 ng/mL (0.5-3.6)
[2019-01-12] MEDS ORDERED: ASPIRIN 325MG EC TABLET PO ONE (16:30)
[2019-01-12] MEDS ORDERED: POTASSIUM CHLORIDE 20MEQ TABLET SR PO ONE (17:30)
[2019-01-12 18:15] LABS: CLARITY URINE CLEAR (CLEAR); COLOR URINE YELLOW (YELLOW); KETONES URINE NEGATIVE (NEGATIVE); LEUKOCYTE ESTERASE URINE NEGATIVE (NEGATIVE); NITRITE URINE NEGATIVE (NEGATIVE); OCCULT BLOOD URINE NEGATIVE (NEGATIVE); PH URINE 6.5 (4.5-8.0); PROTEIN URINE NEGATIVE (NEGATIVE); SPECIFIC GRAVITY URINE 1.021 (1.005-1.030)
[2019-01-12 22:02] VITALS: BP 146/76
== END 2019-01-12 22:03 | disposition short-term general hospital (02) ==
LOC: ER 15:06 → CANBEDREQ 01-13 02:36
DX: R11.0 Nausea (principal); R53.1 Weakness; F03.90 Unspecified dementia, unspecified severity, without behavioral disturbance, psychotic disturbance, mood disturbance, and anxiety; E87.8 Other disorders of electrolyte and fluid balance, not elsewhere classified; I11.9 Hypertensive heart disease without heart failure; E11.9 Type 2 diabetes mellitus without complications; Z86.73 Personal history of transient ischemic attack (TIA), and cerebral infarction without residual deficits
CPT/HCPCS: 36415; 36600; 70450; 71045; 80053; 81003; 82375; 82550; 82553; 82805; 83605; 83690; 83880; 84145; 84484; 85025; 85610; 87040; 87086; 93005; 99285; J7030

== ENCOUNTER 2019-03-19 11:47 | Emergency (ER) | payer MEDICARE, OTHER ==
[~2019-03-19] VITALS: Ht 167.6 cm; Wt 70.0 kg
[2019-03-19 14:04] LABS: BASOPHILS % 1.2 % (0.0-2.0); CHLORIDE 104 mEq/L (98-107); EOSINOPHILS % 1.7 % (0.0-5.0); HEMATOCRIT. 33.3 % (36.0-48.0); HEMOGLOBIN. 10.9 g/dL (12.0-16.0); LYMPHOCYTES % 22.6 % (20.0-50.0); MEAN CORPUSCULAR HEMOGLOBIN 27.8 pg (28.0-32.0); MEAN CORPUSCULAR VOLUME 85.2 fL (81.0-99.0); MEAN PLATELET VOLUME 7.9 fl (7.4-10.4); MONOCYTES % 10.2 % (2.0-8.0); NEUTROPHILS % 64.3 % (40.0-76.0); PLATELET 279 x1000/uL (130-400); RED BLOOD CELL COUNT 3.91 mill/uL (4.2-5.4); RED CELL DISTRIBUTION WIDTH 13.6 % (11.6-14.6)
[2019-03-19 14:52] LABS: PARTIAL THROMBOPLASTIN TIME 25.4 sec (23.4-31.0); PROTHROMBIN TIME 10.3 sec (9.6-11.0)
[2019-03-19] MEDS ORDERED: ASPIRIN 81MG TABLET PO ONE (15:30)
[2019-03-19 16:35] VITALS: BP 148/67
== END 2019-03-19 18:30 | disposition short-term general hospital (02) ==
LOC: ER 12:07 → CANBEDREQ 16:51 → ER 18:30
DX: R55 Syncope and collapse (principal); R07.9 Chest pain, unspecified; D72.819 Decreased white blood cell count, unspecified; D64.9 Anemia, unspecified; E87.5 Hyperkalemia; R74.0 Nonspecific elevation of levels of transaminase and lactic acid dehydrogenase [LDH]; I50.9 Heart failure, unspecified; E88.09 Other disorders of plasma-protein metabolism, not elsewhere classified; R78.89 Finding of other specified substances, not normally found in blood; I11.0 Hypertensive heart disease with heart failure; I25.10 Atherosclerotic heart disease of native coronary artery without angina pectoris; H26.9 Unspecified cataract; I25.2 Old myocardial infarction; Z86.73 Personal history of transient ischemic attack (TIA), and cerebral infarction without residual deficits
CPT/HCPCS: 36415; 71045; 83880; 84484; 93005; 99285

== ENCOUNTER 2019-04-10 09:27 | Emergency (ER) | payer MEDICARE, OTHER ==
[~2019-04-10] VITALS: Ht 165.1 cm; Wt 54.0 kg
[2019-04-10] MEDS ORDERED: KETOROLAC 30MG/ML VIAL IV STA (09:52)
[2019-04-10] MEDS ORDERED: METOCLOPRAMIDE HCL 10MG/2ML VIAL IV ONE (10:00)
[2019-04-10 10:06] LABS: BASOPHILS % 0.7 % (0.0-2.0); EOSINOPHILS % 1.2 % (0.0-5.0); HEMATOCRIT. 32.9 % (36.0-48.0); HEMOGLOBIN. 10.8 g/dL (12.0-16.0); LYMPHOCYTES % 26.1 % (20.0-50.0); MEAN CORPUSCULAR HEMOGLOBIN 28.4 pg (28.0-32.0); MEAN CORPUSCULAR VOLUME 86.3 fL (81.0-99.0); MEAN PLATELET VOLUME 7.6 fl (7.4-10.4); MONOCYTES % 9.2 % (2.0-8.0); NEUTROPHILS % 62.8 % (40.0-76.0); PLATELET 270 x1000/uL (130-400); RED BLOOD CELL COUNT 3.82 mill/uL (4.2-5.4); RED CELL DISTRIBUTION WIDTH 13.4 % (11.6-14.6)
[2019-04-10 10:13] LABS: CHLORIDE 105 mEq/L (98-107); PROTHROMBIN TIME 10.3 sec (9.6-11.0)
[2019-04-10 12:50] VITALS: BP 117/63
== END 2019-04-10 12:52 | disposition home or self-care (01) ==
LOC: ER 09:27
DX: R51 Headache (principal); I11.9 Hypertensive heart disease without heart failure; I25.2 Old myocardial infarction; Z86.73 Personal history of transient ischemic attack (TIA), and cerebral infarction without residual deficits
CPT/HCPCS: 36415; 80053; 85025; 85610; 93005; 96374; 96375; 99284; J1885; J2765

== ENCOUNTER 2019-07-09 08:23 | Inpatient (IN) | payer OTHER ==
[~2019-07-09] VITALS: Ht 162.6 cm; Wt 56.0 kg
[2019-07-09] MEDS ORDERED: SODIUM CHLORIDE 0.9% 500 ML IV ONE (10:03)
[2019-07-09 11:29] LABS: BASOPHILS % 0.9 % (0.0-2.0); EOSINOPHILS % 1.5 % (0.0-5.0); HEMATOCRIT. 30.2 % (36.0-48.0); HEMOGLOBIN. 9.6 g/dL (12.0-16.0); LYMPHOCYTES % 28.1 % (20.0-50.0); MEAN CORPUSCULAR HEMOGLOBIN 25.5 pg (28.0-32.0); MEAN PLATELET VOLUME 8.3 fl (7.4-10.4); MONOCYTES % 9.7 % (2.0-8.0); NEUTROPHILS % 59.8 % (40.0-76.0); PLATELET 315 x1000/uL (130-400); RED BLOOD CELL COUNT 3.77 mill/uL (4.2-5.4); RED CELL DISTRIBUTION WIDTH 14.9 % (11.6-14.6)
[2019-07-09 11:33] LABS: CHLORIDE 108 mEq/L (98-107)
[2019-07-09 11:39] LABS: PROTHROMBIN TIME 9.9 sec (9.6-11.0)
[2019-07-09 16:50] VITALS: BP 140/61
[2019-07-09 17:37] VITALS: BP 140/61
[2019-07-09 20:00] VITALS: BP 138/56
[2019-07-10] VITALS (37 sets, daily range): BP systolic 128–162; BP diastolic 54–112
[2019-07-10] MEDS ORDERED: DOCUSATE SODIUM 100MG CAPSULE PO PRN (04:00)
[2019-07-10] MEDS ORDERED: MAGNESIUM/ALUMINUM HYDROXIDE/SIMETHICONE 30ML UDC PO PRN (04:00)
[2019-07-10] MEDS ORDERED: ACETAMINOPHEN 650MG/20.3ML UDC GT PRN (04:00)
[2019-07-10] MEDS: SODIUM CHLORIDE 0.9% INJ 3ML FLUSH IVF SCH ×3 (05:55→21:17)
[2019-07-10 09:31] LABS: CHLORIDE 110 mEq/L (98-107)
[2019-07-10] MEDS: PANTOPRAZOLE 40MG DR TABLET PO SCH (09:48)
[2019-07-10] MEDS ORDERED: HYDROCODONE/ACETAMINOPHEN 5/325MG TABLET PO PRN (13:15)
[2019-07-10] MEDS ORDERED: HYDRALAZINE 20MG/ML VIAL IV PRN (13:15)
[2019-07-10 14:31] LABS: PROTHROMBIN TIME 10.2 sec (9.6-11.0)
[2019-07-10 14:46] LABS: BG BASE EXCESS 1.8 mmol/L (-2.0-2.0); BG DEOXYHEMOGLOBIN 2.3 % (0.0-5.0); BG FRACTION INSPIRED OXYGEN 28; BG HCO3 ACT 25.8 mmol/L (22.0-26.0); BG METHEMOGLOBIN 0.3 % (0.0-1.5); BG OXYGEN SATURATION 97.7 % (92.0-98.5); BG OXYHEMOGLOBIN 96.4 % (94.0-97.0); BG PCO2 38.3 mmHg (35.0-45.0); BG PH 7.447 (7.350-7.450); BG PO2 115.8 mmHg (75.0-100.0); BG SAMPLE SITE RIGHT BRACHIAL; BG TOTAL HEMOGLOBIN 9.1 g/dL (12.0-18.0); BG VENT MODE NASAL CANNULA
[2019-07-10] MEDS ORDERED: BISACODYL 10MG SUPP PR PRN (16:45)
[2019-07-10] MEDS ORDERED: DIPHENHYDRAMINE 50MG/ML VIAL IV PRN (16:45)
[2019-07-10] MEDS ORDERED: IPRATROPIUM/ALBUTEROL 0.5-3(2.5)MG/3ML NEB HHN PRN (16:45)
[2019-07-10] MEDS ORDERED: GUAIFENESIN 200MG/10ML SUGAR FREE UDC PO PRN (16:45)
[2019-07-10] MEDS: BLOOD SUGAR DIAGNOSTIC STRIP TEST SCH ×2 (17:02→21:16)
[2019-07-10] MEDS: DEXT 5%/0.45% NACL 1000ML 1,000 ML IV SCH (17:07)
[2019-07-10] MEDS: ACETAMINOPHEN 325MG TABLET PO PRN (17:07)
[2019-07-10] MEDS: ASPIRIN 81MG TABLET PO SCH (17:28)
[2019-07-10] MEDS: ATORVASTATIN CALCIUM 10MG TABLET PO SCH (21:17)
[2019-07-11] VITALS (68 sets, daily range): BP systolic 100–178; BP diastolic 47–95
[2019-07-11] MEDS: SODIUM CHLORIDE 0.9% INJ 3ML FLUSH IVF SCH ×3 (05:14→21:06)
[2019-07-11 05:50] LABS: BASOPHILS % 1.2 % (0.0-2.0); EOSINOPHILS % 1.9 % (0.0-5.0); HEMATOCRIT. 32.5 % (36.0-48.0); HEMOGLOBIN. 10.4 g/dL (12.0-16.0); LYMPHOCYTES % 19.7 % (20.0-50.0); MEAN CORPUSCULAR HEMOGLOBIN 25.2 pg (28.0-32.0); MEAN CORPUSCULAR VOLUME 79.1 fL (81.0-99.0); MONOCYTES % 13.7 % (2.0-8.0); NEUTROPHILS % 63.5 % (40.0-76.0); PLATELET 331 x1000/uL (130-400); RED BLOOD CELL COUNT 4.11 mill/uL (4.2-5.4); RED CELL DISTRIBUTION WIDTH 14.8 % (11.6-14.6)
[2019-07-11] MEDS: BLOOD SUGAR DIAGNOSTIC STRIP TEST SCH ×4 (06:06→20:39)
[2019-07-11 06:22] LABS: CHLORIDE 106 mEq/L (98-107)
[2019-07-11 07:11] LABS: VITAMIN B12 SERUM 502 pg/mL (211-911)
[2019-07-11] MEDS: PANTOPRAZOLE 40MG DR TABLET PO SCH (08:15)
[2019-07-11] MEDS: ASPIRIN 81MG TABLET PO SCH (08:15)
[2019-07-11] MEDS: ONDANSETRON HCL 4MG/2ML INJ IV PRN ×3 (08:16→21:02)
[2019-07-11] MEDS: DEXT 5%/0.45% NACL 1000ML 1,000 ML IV SCH (09:03)
[2019-07-11] MEDS: ACETAMINOPHEN 325MG TABLET PO PRN ×2 (11:29→17:48)
[2019-07-11] MEDS: ATORVASTATIN CALCIUM 10MG TABLET PO SCH (20:39)
== END 2019-07-11 21:35 | DRG 69 ==
LOC: ER 09:12 → 6WST 14:14 → EDBEDREQTM 14:18 → EDBEDREQ 14:18 → ENRESERV 15:37 → MICUSO 07-10 14:46 → 5WST 07-11 17:01
PROVIDERS: ADMIT Internal Medicine; ATTEND Internal Medicine
DX: G45.9 Transient cerebral ischemic attack, unspecified (principal); G81.91 Hemiplegia, unspecified affecting right dominant side; E86.0 Dehydration; D64.9 Anemia, unspecified; E11.9 Type 2 diabetes mellitus without complications; D72.819 Decreased white blood cell count, unspecified; E78.5 Hyperlipidemia, unspecified; R26.89 Other abnormalities of gait and mobility; R00.1 Bradycardia, unspecified; I10 Essential (primary) hypertension; H54.61 Unqualified visual loss, right eye, normal vision left eye; I25.10 Atherosclerotic heart disease of native coronary artery without angina pectoris; R62.7 Adult failure to thrive; Z85.028 Personal history of other malignant neoplasm of stomach; Z85.3 Personal history of malignant neoplasm of breast; Z86.73 Personal history of transient ischemic attack (TIA), and cerebral infarction without residual deficits; Z92.3 Personal history of irradiation; Z68.21 Body mass index [BMI] 21.0-21.9, adult; Z87.19 Personal history of other diseases of the digestive system; I25.2 Old myocardial infarction
CPT/HCPCS: 36415; 36600; 70551; 71045; 80048; 80053; 82140; 82375; 82607; 82805; 82962; 83036; 83735; 83880; 84436; 84443; 84484; 85025; 85384; 93005; 93306; 93880; 96360; 97162; 99285; J0360; J2405; J7030

== ENCOUNTER 2019-08-05 06:05 | Emergency (ER) | payer OTHER ==
[~2019-08-05] VITALS: Ht 165.1 cm; Wt 50.0 kg
[2019-08-05 07:34] LABS: BASOPHILS % 1.1 % (0.0-2.0); EOSINOPHILS % 1.6 % (0.0-5.0); HEMATOCRIT. 29.5 % (36.0-48.0); HEMOGLOBIN. 9.5 g/dL (12.0-16.0); LYMPHOCYTES % 25.4 % (20.0-50.0); MEAN CORPUSCULAR HEMOGLOBIN 24.5 pg (28.0-32.0); MEAN CORPUSCULAR VOLUME 75.8 fL (81.0-99.0); MEAN PLATELET VOLUME 7.5 fl (7.4-10.4); NEUTROPHILS % 60.9 % (40.0-76.0); PLATELET 340 x1000/uL (130-400); RED BLOOD CELL COUNT 3.89 mill/uL (4.2-5.4); RED CELL DISTRIBUTION WIDTH 16.2 % (11.6-14.6)
[2019-08-05 07:45] LABS: CHLORIDE 105 mEq/L (98-107)
[2019-08-05] MEDS ORDERED: AMLODIPINE 10MG TABLET PO NR (10:45)
[2019-08-05] MEDS ORDERED: ASPIRIN 81MG TABLET PO NR (11:00)
[2019-08-05] MEDS ORDERED: ONDANSETRON HCL 4MG/2ML INJ IV PRN (12:30)
[2019-08-05] MEDS ORDERED: POTASSIUM CHLORIDE 20MEQ TABLET SR PO NR (12:30)
[2019-08-05] MEDS ORDERED: HYDRALAZINE 20MG/ML VIAL IV PRN (12:30)
[2019-08-05] MEDS ORDERED: DIATR MEGLU/DIATRIZOATE SOLN 30ML PO SCH (12:30)
[2019-08-05] MEDS ORDERED: ACETAMINOPHEN 325MG TABLET PO PRN (12:30)
[2019-08-05] MEDS ORDERED: DIATR MEGLU/DIATRIZOATE SOLN 30ML ONE (14:42)
[2019-08-05 15:35] VITALS: BP 137/75
[2019-08-06] MEDS ORDERED: AMLODIPINE 10MG TABLET PO SCH (09:00)
[2019-08-06] MEDS ORDERED: ASPIRIN 81MG TABLET PO SCH (09:00)
== END 2019-08-05 15:33 | disposition short-term general hospital (02) ==
LOC: ER 06:05 → CANBEDREQ 18:24
DX: R07.89 Other chest pain (principal); R10.84 Generalized abdominal pain; I11.0 Hypertensive heart disease with heart failure; I50.22 Chronic systolic (congestive) heart failure; I42.9 Cardiomyopathy, unspecified; I25.2 Old myocardial infarction; D64.89 Other specified anemias; E87.6 Hypokalemia; D72.819 Decreased white blood cell count, unspecified; Z85.3 Personal history of malignant neoplasm of breast; Z85.028 Personal history of other malignant neoplasm of stomach; Z86.73 Personal history of transient ischemic attack (TIA), and cerebral infarction without residual deficits
CPT/HCPCS: 36415; 71045; 80053; 83880; 84484; 85025; 93005; 93970; 99285; Q9963

== ENCOUNTER 2019-10-26 17:38 | Inpatient (IN) | payer OTHER ==
[~2019-10-26] VITALS: Ht 162.6 cm; Wt 53.5 kg
[2019-10-26] MEDS ORDERED: SODIUM CHLORIDE 0.9% 1,000 ML IV ONE (18:54)
[2019-10-26] MEDS ORDERED: MORPHINE SULFATE 4 MG/ML CPJ (NOT FOR IM USE) IV STA (18:54)
[2019-10-26] MEDS ORDERED: ONDANSETRON HCL 4MG/2ML INJ IV STA (18:54)
[2019-10-26 19:14] LABS: EOSINOPHILS % 1.8 % (0.0-5.0); HEMATOCRIT. 30.3 % (36.0-48.0); HEMOGLOBIN. 9.7 g/dL (12.0-16.0); LYMPHOCYTES % 24.3 % (20.0-50.0); MEAN CORPUSCULAR HEMOGLOBIN 24.6 pg (28.0-32.0); MEAN CORPUSCULAR VOLUME 77.3 fL (81.0-99.0); MEAN PLATELET VOLUME 7.7 fl (7.4-10.4); NEUTROPHILS % 61.9 % (40.0-76.0); PLATELET 386 x1000/uL (130-400); RED BLOOD CELL COUNT 3.92 mill/uL (4.2-5.4); RED CELL DISTRIBUTION WIDTH 17.9 % (11.6-14.6)
[2019-10-26 19:25] LABS: CHLORIDE 105 mEq/L (98-107)
[2019-10-26 23:45] VITALS: BP 167/74
[2019-10-27] VITALS: BP 111/69
[2019-10-27] MEDS ORDERED: HYDROMORPHONE HCL/PF 2MG/ML CPJ IV PRN (02:30)
[2019-10-27 04:00] VITALS: BP 138/66
[2019-10-27] MEDS: ONDANSETRON HCL 4MG/2ML INJ IV PRN ×2 (05:25→12:30)
[2019-10-27] MEDS: DEXT 5%/0.45% NACL KCL 20MEQ/L 1,000 ML IV SCH ×2 (05:29→15:06)
[2019-10-27] MEDS: PIPERACILLIN/TAZOBACTAM 3.375 G in DEXT 5% WATER 100 ML IV SCH ×4 (05:30→22:11)
[2019-10-27 08:00] VITALS: BP 151/77
[2019-10-27] MEDS ORDERED: FAMOTIDINE 20MG/2ML VIAL IV SCH (09:00)
[2019-10-27] MEDS: ENOXAPARIN 40MG/0.4ML SYR SUBCUT SCH (09:09)
[2019-10-27 09:53] LABS: EOSINOPHILS % 1.7 % (0.0-5.0); HEMATOCRIT. 29.8 % (36.0-48.0); HEMOGLOBIN. 9.4 g/dL (12.0-16.0); LYMPHOCYTES % 30.6 % (20.0-50.0); MEAN CORPUSCULAR HEMOGLOBIN 24.6 pg (28.0-32.0); MEAN CORPUSCULAR VOLUME 77.7 fL (81.0-99.0); MEAN PLATELET VOLUME 7.7 fl (7.4-10.4); MONOCYTES % 9.9 % (2.0-8.0); NEUTROPHILS % 56.8 % (40.0-76.0); PLATELET 372 x1000/uL (130-400); RED BLOOD CELL COUNT 3.83 mill/uL (4.2-5.4); RED CELL DISTRIBUTION WIDTH 17.1 % (11.6-14.6)
[2019-10-27 09:58] LABS: CHLORIDE 105 mEq/L (98-107)
[2019-10-27 12:00] VITALS: BP 152/78
[2019-10-27 16:00] VITALS: BP 120/66
[2019-10-27] MEDS: OMEPRAZOLE 20MG CAPSULE EXTENDED RELEASE PO SCH ×2 (18:06→22:11)
[2019-10-27 20:00] VITALS: BP 146/76
[2019-10-28] VITALS: BP 145/70
[2019-10-28 04:00] VITALS: BP 138/66
[2019-10-28] MEDS: PIPERACILLIN/TAZOBACTAM 3.375 G in DEXT 5% WATER 100 ML IV SCH ×4 (05:04→20:28)
[2019-10-28] MEDS: DEXT 5%/0.45% NACL KCL 20MEQ/L 1,000 ML IV SCH ×3 (05:05→19:00)
[2019-10-28 08:00] VITALS: BP 134/63
[2019-10-28] MEDS: OMEPRAZOLE 20MG CAPSULE EXTENDED RELEASE PO SCH ×2 (10:39→20:28)
[2019-10-28] MEDS: ENOXAPARIN 40MG/0.4ML SYR SUBCUT SCH (10:40)
[2019-10-28 12:00] VITALS: BP 125/64
[2019-10-28] MEDS ORDERED: ACETAMINOPHEN 325MG TABLET PO PRN (13:15)
[2019-10-28] MEDS: ONDANSETRON HCL 4MG/2ML INJ IV PRN (13:26)
[2019-10-28] MEDS ORDERED: HYDRALAZINE 20MG/ML VIAL IV PRN (15:45)
[2019-10-28] MEDS ORDERED: HYDROCODONE/ACETAMINOPHEN 5/325MG TABLET PO PRN (15:45)
[2019-10-28] MEDS ORDERED: DIPHENHYDRAMINE 50MG/ML VIAL IV PRN (15:45)
[2019-10-28] MEDS ORDERED: MORPHINE SULFATE 2 MG/ML CPJ (NOT FOR IM USE) IV PRN (15:45)
[2019-10-28 16:00] VITALS: BP 139/77
[2019-10-28] MEDS: METOCLOPRAMIDE HCL 10MG/2ML VIAL IV SCH ×2 (17:33→23:29)
[2019-10-28 20:00] VITALS: BP 145/73
[2019-10-28] MEDS ORDERED: LACTULOSE 20G/30ML UDC PO PRN (21:00)
[2019-10-29] VITALS: BP 117/65
[2019-10-29] MEDS: PIPERACILLIN/TAZOBACTAM 3.375 G in DEXT 5% WATER 100 ML IV SCH ×3 (02:36→15:00)
[2019-10-29] MEDS: DEXT 5%/0.45% NACL KCL 20MEQ/L 1,000 ML IV SCH ×2 (02:36→15:00)
[2019-10-29 06:18] LABS: BASOPHILS % 1.4 % (0.0-2.0); EOSINOPHILS % 1.2 % (0.0-5.0); HEMATOCRIT. 28.5 % (36.0-48.0); HEMOGLOBIN. 9.1 g/dL (12.0-16.0); LYMPHOCYTES % 27.3 % (20.0-50.0); MEAN CORPUSCULAR HEMOGLOBIN 24.6 pg (28.0-32.0); MEAN CORPUSCULAR VOLUME 77.3 fL (81.0-99.0); MEAN PLATELET VOLUME 7.9 fl (7.4-10.4); MONOCYTES % 12.4 % (2.0-8.0); NEUTROPHILS % 57.7 % (40.0-76.0); PLATELET 379 x1000/uL (130-400); RED BLOOD CELL COUNT 3.69 mill/uL (4.2-5.4); RED CELL DISTRIBUTION WIDTH 17.2 % (11.6-14.6)
[2019-10-29 06:31] LABS: CHLORIDE 106 mEq/L (98-107)
[2019-10-29 08:00] VITALS: BP 138/70
[2019-10-29] MEDS: ENOXAPARIN 40MG/0.4ML SYR SUBCUT SCH (09:31)
[2019-10-29 12:00] VITALS: BP 135/71
[2019-10-29] MEDS ORDERED: DOCU-138 MT (12:38)
[2019-10-29] MEDS ORDERED: METO-293 MT (12:38)
[2019-10-29] MEDS ORDERED: LACTULOSE 20G/30ML UDC PO SCH (13:00)
[2019-10-29] MEDS: METOCLOPRAMIDE HCL 10MG/2ML VIAL IV SCH (13:03)
[2019-10-29 15:18] VITALS: BP 135/71
[2019-10-29 16:00] VITALS: BP 122/60
[2019-10-30] MEDS ORDERED: FAMOTIDINE 20MG TABLET PO SCH (09:00)
== END 2019-10-29 17:10 | disposition home or self-care (01) | DRG 446 ==
LOC: ER 17:38 → 5WST 22:19 → ENRESERV 23:00
PROVIDERS: ADMIT Internal Medicine; ATTEND Internal Medicine
DX: K80.20 Calculus of gallbladder without cholecystitis without obstruction (principal); K29.70 Gastritis, unspecified, without bleeding; E11.9 Type 2 diabetes mellitus without complications; I25.10 Atherosclerotic heart disease of native coronary artery without angina pectoris; D64.9 Anemia, unspecified; E78.5 Hyperlipidemia, unspecified; R54 Age-related physical debility; C50.919 Malignant neoplasm of unspecified site of unspecified female breast; I10 Essential (primary) hypertension; D72.819 Decreased white blood cell count, unspecified; R00.1 Bradycardia, unspecified; R26.89 Other abnormalities of gait and mobility; I25.2 Old myocardial infarction; Z86.73 Personal history of transient ischemic attack (TIA), and cerebral infarction without residual deficits; Z85.028 Personal history of other malignant neoplasm of stomach; Z92.3 Personal history of irradiation; Z92.21 Personal history of antineoplastic chemotherapy
CPT/HCPCS: 36415; 74177; 76700; 80053; 83605; 83880; 85025; 93005; 96374; 97162; 99285; J1170; J1650; J2270; J2405; J2543; J2765; J3490; J7060

== ENCOUNTER 2019-11-01 15:13 | Inpatient (IN) | payer OTHER ==
[~2019-11-01] VITALS: Ht 165.1 cm; Wt 61.2 kg
[~2019-11-01 15:13] MED LIST changes: -CLOP75TA16 PO; +DOCU-138 MT; +METO-293 MT
[2019-11-01] MEDS ORDERED: KETOROLAC 30MG/ML VIAL IV STA (18:07)
[2019-11-01] MEDS ORDERED: SODIUM CHLORIDE 0.9% 1,000 ML IV ONE (18:07)
[2019-11-01] MEDS ORDERED: ONDANSETRON HCL 4MG/2ML INJ IV STA (18:24)
[2019-11-01] MEDS ORDERED: MORPHINE SULFATE 4 MG/ML CPJ (NOT FOR IM USE) IV STA (18:24)
[2019-11-01 18:35] LABS: CHLORIDE 103 mEq/L (98-107)
[2019-11-01 18:41] LABS: BASOPHILS % 1.1 % (0.0-2.0); EOSINOPHILS % 1.1 % (0.0-5.0); HEMATOCRIT. 28.2 % (36.0-48.0); HEMOGLOBIN. 9.1 g/dL (12.0-16.0); LYMPHOCYTES % 31.2 % (20.0-50.0); MEAN CORPUSCULAR HEMOGLOBIN 24.4 pg (28.0-32.0); MEAN CORPUSCULAR VOLUME 75.9 fL (81.0-99.0); MEAN PLATELET VOLUME 7.6 fl (7.4-10.4); MONOCYTES % 9.8 % (2.0-8.0); NEUTROPHILS % 56.8 % (40.0-76.0); PLATELET 384 x1000/uL (130-400); RED BLOOD CELL COUNT 3.72 mill/uL (4.2-5.4); RED CELL DISTRIBUTION WIDTH 17.4 % (11.6-14.6)
[2019-11-01] MEDS ORDERED: KCL 20MEQ/100ML PREMIX 100 ML IV ONE (19:30)
[2019-11-01] MEDS ORDERED: ASPIRIN 81MG TABLET PO ONE (21:45)
[2019-11-01 22:31] LABS: CLARITY URINE CLEAR (CLEAR); COLOR URINE YELLOW (YELLOW); KETONES URINE NEGATIVE (NEGATIVE); LEUKOCYTE ESTERASE URINE NEGATIVE (NEGATIVE); NITRITE URINE NEGATIVE (NEGATIVE); OCCULT BLOOD URINE NEGATIVE (NEGATIVE); PROTEIN URINE NEGATIVE (NEGATIVE); UROBILINOGEN URINE 0.2 E.U./dL (0.2-1.0)
[2019-11-02] MEDS ORDERED: LOSARTAN POTASSIUM 50 MG TABLET PO SCH (02:00)
[2019-11-02 10:28] LABS: LDL CHOLESTEROL 94 mg/dL (5-100)
[2019-11-02 10:30] LABS: HDL CHOLESTEROL 75 mg/dL (40-59)
[2019-11-02 11:06] LABS: BASOPHILS % 1.8 % (0.0-2.0); HEMATOCRIT. 27.9 % (36.0-48.0); LYMPHOCYTES % 34.7 % (20.0-50.0); MEAN CORPUSCULAR HEMOGLOBIN 24.5 pg (28.0-32.0); MEAN CORPUSCULAR VOLUME 75.8 fL (81.0-99.0); MEAN PLATELET VOLUME 7.5 fl (7.4-10.4); MONOCYTES % 10.4 % (2.0-8.0); NEUTROPHILS % 51.1 % (40.0-76.0); PLATELET 357 x1000/uL (130-400); RED BLOOD CELL COUNT 3.68 mill/uL (4.2-5.4); RED CELL DISTRIBUTION WIDTH 17.3 % (11.6-14.6)
[2019-11-02 11:10] LABS: CHLORIDE 106 mEq/L (98-107)
[2019-11-02] MEDS ORDERED: HYDRALAZINE HCL 50MG TABLET PO SCH (12:58)
[2019-11-02] MEDS ORDERED: AMLODIPINE 5MG TABLET PO SCH (12:58)
[2019-11-02] MEDS ORDERED: LACTULOSE 20G/30ML UDC PO NR (12:58)
[2019-11-02 13:00] VITALS: BP 180/108
[2019-11-02] MEDS ORDERED: NA PHOS,M-B/NA PHOS,DI-BA ENEMA 118ML PR NR (13:00)
[2019-11-02 16:23] VITALS: BP 135/75
== END 2019-11-02 17:15 | disposition home or self-care (01) | DRG 392 ==
LOC: ER 15:13 → 6WST 20:11 → ENRESERV 11-02 11:16
PROVIDERS: ADMIT Internal Medicine; ATTEND Internal Medicine
DX: K59.09 Other constipation (principal); C16.9 Malignant neoplasm of stomach, unspecified; I10 Essential (primary) hypertension; E11.9 Type 2 diabetes mellitus without complications; R07.89 Other chest pain; R62.7 Adult failure to thrive; E78.5 Hyperlipidemia, unspecified; D64.9 Anemia, unspecified; R00.1 Bradycardia, unspecified; D72.819 Decreased white blood cell count, unspecified; C50.919 Malignant neoplasm of unspecified site of unspecified female breast; K80.20 Calculus of gallbladder without cholecystitis without obstruction; R94.31 Abnormal electrocardiogram [ECG] [EKG]; Z86.73 Personal history of transient ischemic attack (TIA), and cerebral infarction without residual deficits; Z85.028 Personal history of other malignant neoplasm of stomach; Z79.899 Other long term (current) drug therapy; I25.2 Old myocardial infarction; Z85.3 Personal history of malignant neoplasm of breast; Z68.22 Body mass index [BMI] 22.0-22.9, adult; Z92.3 Personal history of irradiation
CPT/HCPCS: 36415; 71045; 74176; 80053; 80061; 81003; 83880; 84484; 85025; 93005; 99285; J1885; J2270; J2405; J3480; J7030

== ENCOUNTER 2019-12-31 10:41 | Emergency (ER) | payer OTHER, MEDICARE ==
[~2019-12-31] VITALS: Ht 167.6 cm; Wt 56.0 kg
[2019-12-31 11:33] LABS: HEMATOCRIT. 25.3 % (36.0-48.0); HEMOGLOBIN. 8.1 g/dL (12.0-16.0); MEAN CORPUSCULAR VOLUME 71.7 fL (81.0-99.0); MEAN PLATELET VOLUME 7.6 fl (7.4-10.4); PLATELET 404 x1000/uL (130-400); RED BLOOD CELL COUNT 3.53 mill/uL (4.2-5.4); RED CELL DISTRIBUTION WIDTH 21.4 % (11.6-14.6)
[2019-12-31 11:39] LABS: CHLORIDE 112 mEq/L (98-107)
[2019-12-31] MEDS ORDERED: ACETAMINOPHEN 325MG TABLET PO ONE (13:00)
[2019-12-31 13:13] LABS: PLATELET ESTIMATE SLIGHTLY INCREASED
[2019-12-31 13:25] LABS: CREATINE KINASE 89 IU/L (26-192)
[2019-12-31 13:26] LABS: CREATINE KINASE MB FRACTION < 1.0 ng/mL (0.5-3.6)
[2019-12-31 13:35] LABS: CLARITY URINE CLOUDY (CLEAR); COLOR URINE YELLOW (YELLOW); KETONES URINE NEGATIVE (NEGATIVE); LEUKOCYTE ESTERASE URINE TRACE (NEGATIVE); NITRITE URINE NEGATIVE (NEGATIVE); OCCULT BLOOD URINE NEGATIVE (NEGATIVE); PH URINE 7.5 (4.5-8.0); PROTEIN URINE NEGATIVE (NEGATIVE); SPECIFIC GRAVITY URINE 1.015 (1.005-1.030)
[2019-12-31] MEDS ORDERED: PIPERACILLIN/TAZ 3.375G PREMIX 50 ML IV ONE (14:15)
[2019-12-31] MEDS ORDERED: SODIUM CHLORIDE 0.9% 500 ML IV ONE (14:15)
[2019-12-31 19:00] VITALS: BP 146/70
[2020-02-01] MEDS ORDERED: SODIUM CHLORIDE 0.9% 500 ML IV ONE (11:54)
[2020-02-01] MEDS ORDERED: ACETAMINOPHEN 325MG TABLET PO STA (11:54)
[2020-02-01] MEDS ORDERED: DIPHENHYDRAMINE 50MG/ML VIAL IV NR (12:00)
[2020-02-01] MEDS ORDERED: METOCLOPRAMIDE HCL 10MG/2ML VIAL IV NR (12:00)
[2020-02-01] MEDS ORDERED: DEXAMETHASONE 10 MG/ML VIAL IV NR (12:00)
[2020-02-01 12:17] LABS: HEMATOCRIT. 25.2 % (36.0-48.0); HEMOGLOBIN. 7.8 g/dL (12.0-16.0); MEAN CORPUSCULAR HEMOGLOBIN 21.5 pg (28.0-32.0); MEAN CORPUSCULAR VOLUME 69.3 fL (81.0-99.0); MEAN PLATELET VOLUME 7.1 fl (7.4-10.4); PLATELET 395 x1000/uL (130-400); RED BLOOD CELL COUNT 3.63 mill/uL (4.2-5.4); RED CELL DISTRIBUTION WIDTH 20.5 % (11.6-14.6)
[2020-02-01 12:24] LABS: CHLORIDE 107 mEq/L (98-107)
[2020-02-01 12:32] LABS: PROTHROMBIN TIME 10.9 sec (9.6-11.0)
[2020-02-01 13:37] LABS: PLATELET ESTIMATE NORMAL
== END 2019-12-31 19:29 | disposition short-term general hospital (02) ==
LOC: ER 10:41 → CANBEDREQ 22:36
DX: D72.819 Decreased white blood cell count, unspecified (principal); D64.9 Anemia, unspecified; E11.9 Type 2 diabetes mellitus without complications; I10 Essential (primary) hypertension; I25.2 Old myocardial infarction; Z86.73 Personal history of transient ischemic attack (TIA), and cerebral infarction without residual deficits; Z85.028 Personal history of other malignant neoplasm of stomach; Z79.899 Other long term (current) drug therapy
CPT/HCPCS: 36415; 70450; 71045; 80053; 81003; 82550; 82553; 83605; 83735; 84484; 85025; 87040; 87077; 87086; 87186; 93005; 96365; 99285; J2543; J7040

== ENCOUNTER 2020-02-01 11:13 | Emergency (ER) | payer OTHER ==
[~2020-02-01] VITALS: Ht 162.6 cm; Wt 50.0 kg
[2020-02-01] MEDS ORDERED: SODIUM CHLORIDE 0.9% 500 ML IV ONE (12:32)
[2020-02-01] MEDS ORDERED: DEXAMETHASONE 10 MG/ML VIAL IV ONE (12:45)
[2020-02-01] MEDS ORDERED: METOCLOPRAMIDE HCL 10MG/2ML VIAL IV ONE (12:45)
[2020-02-01] MEDS ORDERED: DIPHENHYDRAMINE 50MG/ML VIAL IV ONE (12:45)
[2020-02-01] MEDS ORDERED: POTASSIUM CHLORIDE 20MEQ TABLET SR PO NR (14:15)
[2020-02-01 17:27] LABS: CLARITY URINE CLOUDY (CLEAR); COLOR URINE YELLOW (YELLOW); KETONES URINE NEGATIVE (NEGATIVE); LEUKOCYTE ESTERASE URINE 1+ (NEGATIVE); NITRITE URINE NEGATIVE (NEGATIVE); OCCULT BLOOD URINE NEGATIVE (NEGATIVE); PH URINE 7.5 (4.5-8.0); PROTEIN URINE NEGATIVE (NEGATIVE); SPECIFIC GRAVITY URINE 1.021 (1.005-1.030)
[2020-02-01 20:00] VITALS: BP 130/63
== END 2020-02-01 21:25 | disposition home or self-care (01) ==
LOC: ER 11:13 → CANBEDREQ 22:29
DX: E87.6 Hypokalemia (principal); D64.9 Anemia, unspecified; R51 Headache; D72.819 Decreased white blood cell count, unspecified; E11.9 Type 2 diabetes mellitus without complications; Z86.73 Personal history of transient ischemic attack (TIA), and cerebral infarction without residual deficits
CPT/HCPCS: 70450; 81003; 93005; 96374; 96375; 99285; J1100; J1200; J2765; J7030

== ENCOUNTER 2020-02-05 08:12 | Emergency (ER) | payer OTHER ==
[~2020-02-05] VITALS: Ht 162.6 cm; Wt 50.0 kg
[2020-02-05] MEDS ORDERED: SODIUM CHLORIDE 0.9% 1,000 ML IV ONE (08:44)
[2020-02-05] MEDS ORDERED: ONDANSETRON HCL 4MG/2ML INJ IV STA (08:44)
[2020-02-05 09:06] LABS: CHLORIDE 112 mEq/L (98-107)
[2020-02-05 09:09] LABS: HEMATOCRIT. 27.1 % (36.0-48.0); HEMOGLOBIN. 8.1 g/dL (12.0-16.0); MEAN CORPUSCULAR HEMOGLOBIN 20.7 pg (28.0-32.0); MEAN CORPUSCULAR VOLUME 69.6 fL (81.0-99.0); MEAN PLATELET VOLUME 7.3 fl (7.4-10.4); PLATELET 404 x1000/uL (130-400); RED CELL DISTRIBUTION WIDTH 20.8 % (11.6-14.6)
[2020-02-05 09:10] LABS: PROTHROMBIN TIME 10.6 sec (9.6-11.0)
[2020-02-05 09:50] LABS: PLATELET ESTIMATE SLIGHTLY INCREASED
[2020-02-05 15:03] VITALS: BP 125/69
== END 2020-02-05 16:00 | disposition home or self-care (01) ==
LOC: ER 08:12 → CANBEDREQ 23:01
DX: R51 Headache (principal); Z86.73 Personal history of transient ischemic attack (TIA), and cerebral infarction without residual deficits
CPT/HCPCS: 36415; 70450; 71045; 80053; 84484; 85025; 85610; 93005; 96374; 99285; J2405; J7030

== ENCOUNTER 2020-02-27 11:25 | Emergency (ER) | payer OTHER ==
[~2020-02-27] VITALS: Ht 157.5 cm; Wt 46.0 kg
[2020-02-27 12:49] LABS: HEMATOCRIT. 31.2 % (36.0-48.0); HEMOGLOBIN. 9.5 g/dL (12.0-16.0); MEAN CORPUSCULAR HEMOGLOBIN 21.3 pg (28.0-32.0); MEAN CORPUSCULAR VOLUME 69.6 fL (81.0-99.0); MEAN PLATELET VOLUME 7.3 fl (7.4-10.4); PLATELET 430 x1000/uL (130-400); RED BLOOD CELL COUNT 4.48 mill/uL (4.2-5.4); RED CELL DISTRIBUTION WIDTH 21.3 % (11.6-14.6)
[2020-02-27 13:00] LABS: CHLORIDE 104 mEq/L (98-107)
[2020-02-27 13:26] LABS: PLATELET ESTIMATE INCREASED
[2020-02-27 16:03] LABS: CHLORIDE 108 mEq/L (98-107)
[2020-02-27] MEDS ORDERED: POTASSIUM CHLORIDE 20MEQ TABLET SR PO ONE (16:30)
[2020-02-27 17:38] VITALS: BP 159/81
== END 2020-02-27 17:38 | disposition home or self-care (01) ==
LOC: ER 11:25
DX: R06.00 Dyspnea, unspecified (principal); E87.6 Hypokalemia; I11.9 Hypertensive heart disease without heart failure; Z86.73 Personal history of transient ischemic attack (TIA), and cerebral infarction without residual deficits
CPT/HCPCS: 36415; 71045; 80048; 80053; 83880; 84484; 85025; 93005; 99285